=== PATIENT | male | born 1990 | race Caucasian/White ===

== ENCOUNTER 2020-02-29 | Outpatient (REF) | payer BC, SELFPAY ==
[2020-03-01 11:28] LABS: Creatinine Urine 239.18 mg/dL; Microalbum/Creatinine Ratio Ur 7.9 ug/mg cr
== END 2020-02-29 00:01 | disposition home or self-care (01) ==
LOC: HO.WFDLNP
PROVIDERS: Visit Provider Family Medicine
DX: E11.9 Type 2 diabetes mellitus without complications (principal); I10 Essential (primary) hypertension
CPT/HCPCS: 82043

== ENCOUNTER 2021-04-25 14:05 | Outpatient (REF) | payer BC, SELFPAY | END 2021-04-25 14:06 | disposition home or self-care (01) | LOC: HO.LAB 14:05 | PROVIDERS: Visit Provider Family Medicine | DX: Z13.89 Encounter for screening for other disorder (principal) ==

== ENCOUNTER 2021-04-27 11:22 | Outpatient (REF) | payer BC, SELFPAY ==
[2021-04-27 14:30] LABS: Alanine Aminotransferase 23 U/L (0-40); Albumin Level 4.5 g/dL (3.5-5.0); Alkaline Phosphatase 43 U/L (39-117); Anion Gap 10 (12-20); Aspartate Amino Transferase 16 U/L (5-37); Bilirubin Total 1.1 mg/dL (0.0-1.0); Blood Urea Nitrogen 12 mg/dL (9-16); Calcium 9.3 mg/dL (8.4-10.2); Carbon Dioxide 30 mmol/L (22-29); Chloride 103 mmol/L (96-108); Cholesterol 173 mg/dL; Estimated Glomerular Filt Rate > 60; Glucose Fasting 121 mg/dL (60-99); HDL Cholesterol 32 mg/dL; LDL Cholesterol Calculated 128 mg/dl; Potassium 4.3 mmol/L (3.3-5.1); Sodium 139 mmol/L (135-145); Total Protein 7.3 g/dL (6.5-8.0); Triglycerides 65 mg/dL
[2021-04-27 14:51] LABS: TSH reflex Free T4 1.42 uIU/mL (0.32-4.0)
== END 2021-04-27 11:23 | disposition home or self-care (01) ==
LOC: HO.WFDLDS 11:22
PROVIDERS: Visit Provider Family Medicine
DX: Z00.00 Encounter for general adult medical examination without abnormal findings (principal)
CPT/HCPCS: 36415; 80053; 80061; 84443

== ENCOUNTER → 2022-06-21 12:53 | Outpatient (BNVA) | payer BC, SELFPAY | PROVIDERS: PCP Family Medicine; Visit Provider Urology | DX: Z30.2 Encounter for sterilization (principal); F41.8 Other specified anxiety disorders | CPT/HCPCS: 55250 ==

== ENCOUNTER 2022-09-20 09:06 | Outpatient (AMB) | payer BC, SELFPAY ==
--- NOTE | 2022-09-20 09:09 | MHC.OFFVIS ---
Intake Intake Visit Reasons: Three month follow-up semen Intake Note: Patient is present for Follow Up Semen Analysis Urology Med:none Antibiotic Allergy:None Blood Thinner: None Allergies No Known Allergies Allergy (Verified 09/20/22 09:13) HPI HPI Comments History of Present Illness Details Elkin is a pleasant male. He is a patient of Dr. Sinclair. He is seen for the following urologic conditions - anxiety about health [employer]pper with [place] Vasectomy completed Minimal issues with procedure No sperm seen on high-powered examination of sample Vasectomy procedure The patient presents for vasectomy procedure. He is currently He has fathered - three child, with a single partner. The youngest child is - > 1 yr old. His partner is aware and permissive for a vasectomy Current form of control is combination condom And none. 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 Current occupational exposures/hazards: No Cognitive needs: No Hearing needs: No Vision needs: No Review of Systems Const Denies chills and Denies fever(s) Card Reports no additional complaints and Denies syncope Resp Denies cough GI Denies abdominal pain and Denies heartburn Reports as per HPI and Denies change in libido Neuro Denies syncope Psych Denies change in libido Endo Denies change in libido Physical Exam Const General: cooperative, healthy appearing, comfortable and no acute distress Orientation/consciousness: patient oriented x3 HEENT Face and sinus: Yes normal facial exam Mouth: moist mucous membranes Neck Neck: Yes normal visual inspection, Yes full ROM and Yes trachea midline Chest Chest palpation & inspection: normal inspection of the chest Resp Effort & Inspection: normal respiratory effort, able to speak in complete sentences and no respiratory distress GI Inspection: Yes normal to inspection Back/Spine/Pelvis Cervical Spine: normal cervical lordosis Thoracic/Lumbar Spine: thoracic and lumbar spine normal to inspection Skin General skin exam: no rashes or lesions noted Neuro General: patient oriented x3, gait normal, tone normal and moves all extremities Extrem General: Yes normal to inspection and Yes capillary refill normal Assessment & Plan Assessment & Plan (1) Anxiety about health: Code(s): F41.8 - Other specified anxiety disorders Plan P.r.n. Patient Instructions: Imaging studies, laboratory and physical exam results were discussed and reviewed in detail. No major barriers to patient understanding were identified. An opportunity to ask questions regarding the treatment plan was provided. All questions were answered. The patient expressed understanding and agreement with the above treatment plan. The patient is aware they should contact our office by phone for worsening of their current condition or the appearance of new urologic symptoms. Compliance is encouraged with any medications and followup testing that is ordered. It is a privilege to participate in the urologic care of your patient. If you have any questions or concerns regarding treatment for the above conditions, or other urologic issues, please do not hesitate to contact me. The office telephone contact is [phone]. This note is constructed using voice recognition software. While every effort has been made to ensure accuracy paste mixing supervisor errors may have been included. Yours sincerely, Dr Alek Jerry MD, [facility] - Urology Providers of Expert, Compassionate Care for the Genitourinary System Coding Level of Care Code Est Pt Level 3 (28417) Diagnoses Anxiety about health F41.8
== END 2022-09-20 10:17 | disposition home or self-care (01) ==
PROVIDERS: Visit Provider Urology
DX: F41.8 Other specified anxiety disorders (principal)
CPT/HCPCS: 99213

== ENCOUNTER → 2022-09-20 09:06 | Outpatient (BNVA) | payer BC, SELFPAY | PROVIDERS: Visit Provider Urology ==

== ENCOUNTER 2022-09-20 10:50 | Outpatient (AMB) | payer BC, SELFPAY ==
[2022-09-20 10:54] VITALS: BP 108/64; PULSE 78; RESP 12; TEMP 36.6; O2SAT 99; BMI 26.9
--- NOTE | 2022-09-20 10:54 | A.OFFPC_ITS ---
Vital Signs 09/20/22 10:54 Height 5 ft 9 in Weight 182 lb 4 oz BMI 26.9 BP 108/64 Blood Pressure Location Lt brachial Position Sitting Respiration 12 Pulse 78 Pulse Source Pulse Oximeter Temp 98 F Temp Source Temporal Artery Scan Pulse Oximetry (%) 99 Oxygen Delivery Method Room Air Intake Visit Reasons: CPE with f/u labs and health maintenance Intake Note: Patient states that his blood sugar has been consistently over 160 and hasn't changed nothing in his diet. Patient states that he would like to try the Itz Sensor due to him feelimg like it would be easier for his daily life. Quality Compliance Consultant Required: No Accompanied by: Self / Same As Patient Allergies No Known Allergies Allergy (Verified 09/20/22 11:16) Medication List - Last Reconciled 09/20/22 by Marylu Negron CNP blood sugar diagnostic (OneTouch Ultra Test strips) Test Once Daily lancets (FreeStyle Lancets) As directed metformin 850 mg PO BID Tobacco use date assessed: 09/20/22 Dental Screening Dental Screen Date: 09/20/22 Did you have a dental visit in the last 12 months?: Yes Did you have a dental problem in the last 6 months where you did not have access to dental care?: No Was dental information given to patient?: Patient has dentist HPI HPI Comments History of Present Illness Details 32-year-old male presents for complete physical exam, labs reviewed, and diabetes follow-up. He is on metformin which he notes he takes as prescribed. He states that he checks his blood glucose 3-4 times daily with readings between 160-190 in the past month and half. He admits to maintaining a healthy diet and exercising routinely No acute symptoms today. He has not gotten his fasting blood work done. He requests a CMG device. He states he will pay out of pocket if the health plan does not cover the device. He states he usually follow up with his PCP every 6 months. 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 Kedar Thomas, Rosie Lei, Jovany Torres and colleagues, with an educational ana laura from [employer]. Review of Systems Const Details: Denies chills, Denies fatigue, Denies fever(s), Denies headache(s) and Denies weakness HEENT Denies change in vision, Denies dizziness, Denies headache(s), Denies hearing loss, Denies nasal congestion, Denies sinus pain, Denies sinus pressure and Denies sore throat Card Denies chest pain, Denies lightheadedness, Denies dyspnea and Denies other (palpitations) Resp Denies cough, Denies dyspnea and Denies wheezing GI Denies abdominal pain, Denies melena, Denies hematochezia, Denies change in bowel habits, Denies dyspepsia and Denies nausea Denies hematuria and Denies dysuria Musc Denies abnormal gait, Denies myalgias, Denies arthralgias, Denies numbness and Denies tingling Skin/Breast Denies rash, Denies unusual bruising and Denies wounds Neuro Denies abnormal gait, Denies dizziness, Denies headache(s), Denies memory loss, Denies numbness, Denies Sensory deficit (Neuro), Denies tingling and Denies weakness Psych Denies anxiety, Denies depression and Denies memory loss Endo Denies cold intolerance, Denies fatigue, Denies heat intolerance, Denies polydipsia and Denies polyuria Moises/Lymph Denies easy bleeding and Denies easy bruising Aller/Immun Denies wheezing Physical exam (Primary Care) Vital Signs: Last Vital Signs Temp 98 F 09/20/22 10:54 Pulse 78 09/20/22 10:54 Resp 12 09/20/22 10:54 BP 108/64 09/20/22 10:54 Pulse Ox 99 09/20/22 10:54 Oxygen Delivery Method Room Air 09/20/22 10:54 BMI result Body Mass Index 26.9 Tobacco/Smoking Status: Tobacco use Status Tobacco use date assessed 09/20/22 09/20/22 11:08 Patient Tobacco Use Status Former Tobacco user 09/20/22 10:56 Tobacco use type Cigarette 09/20/22 10:56 e-Cigarette/Vaping Use Never Used 09/20/22 10:56 Thrive Assessment: Date of Thrive Assessment Date Thrive assessed 03/28/22 09/20/22 10:56 Const Other: General: no acute distress, well developed, alert and awake Nutritional Appearance: well nourished Orientation/consciousness: patient oriented x3 HENMT Head: Yes normocephalic and Yes atraumatic Ears: hearing grossly normal bilaterally and TM's normal bilaterally General nose exam: Normal external nose present and Normal nares present Mouth: Normal oral and palatal mucosa present and moist mucous membranes Teeth and gingiva: dentition normal Throat: Yes oropharynx normal Eyes Pupils: Equal, round and reactive pupils present and Pupil accommodation reflex normal EOM: EOMs intact bilaterally Neck Neck: Yes normal visual inspection, Yes no lymphadenopathy and Yes trachea midline Thyroid: Thyroid normal Carotids: no bruits Lymphatic: no lymphadenopathy noted Chest Chest palpation & inspection: normal inspection of the chest Resp Effort & Inspection: normal respiratory effort Auscultation: clear to auscultation bilaterally Cardio Rate: regular rate Rhythm: regular rhythm Heart sounds: S1 normal heart sound present, S2 normal heart sound present, no gallops, no murmurs and no rubs Bruits: no abdominal aortic bruits and no carotid bruits GI Palpation (GI): No Abdominal aortic bruit present, Soft to palpation, nontender, No hepatosplenomegaly present and No Rebound tenderness present Auscultation: normal bowel sounds General: Yes no CVA tenderness Back/Spine/Pelvis Back: no CVA tenderness Cervical Spine: cervical ROM normal and No Cervical spine tenderness Thoracic/Lumbar Spine: thoraco-lumbar ROM normal, No pain with thoraco-lumbar ROM, No thoracic spinal tenderness and No lumbar spinal tenderness Skin General: warm and dry. Normal skin color. Normal skin turgor Lesions: no lesions Rashes: no rashes Trauma: no lacerations or abrasions Wounds: no wounds Nails: normal Neuro General: patient oriented x3, gait normal and CN's II-XI intact bilaterally Cranial nerves: Yes Equal, round and reactive pupils present Cognition (Neuro): normal cognition Gait exam (Neuro): Normal gait present Motor exam (neuro): 5/5 motor strength present throughout Sensory Exam: No Sensory deficit (Neuro) Deep tendon reflexes (DTR's): Right patellar reflex intensity grade: 2+ and Left patellar reflex intensity grade: 2+ Extrem General: Yes normal to inspection, No edema and No calf tenderness Psych Appearance: grossly normal Affect: normal affect Attitude: cooperative Thought process: Normal thought process present Results AMB Hemoglobin A1c AMB Hemoglobin A1c 6.4 % Last Edit by Luzma Rice MA on 09/20/22 11:47 Results Reviewed Results Reviewed: Laboratory Last Values Hgb A1c (Clinic) 6.4 % (4.0-6.0) H 09/20/22 11:46 Assessment and Plan Assessment & Plan (1) Adult general medical exam: Code(s): Z00.00 - Encounter for general adult medical examination without abnormal findings Plan: Normal physical exam of a 32-year-old male No significant physical restrictions or limitations noted (2) Diabetes type 2, controlled: Code(s): E11.9 - Type 2 diabetes mellitus without complications Plan: His A1c today is 6.4%, within goal of less than 7.0% Continue to take metformin as prescribed ADA diet and routine exercise encouraged Itz 2 ordered He met with the nurse navigator who instructed him on Itz 2 Advised to get pending fasting blood work done before next visit Follow-up with PCP in 6 months Return sooner with symptoms or concerns Verbalized understanding and agreed with treatment plan. Orders: Orders AMB Hemoglobin A1c Today Z13.9 - Encounter for screening, unspecified Medications: New flash glucose sensor (FreeStyle Itz 2 Sensor kit) As directed 1 ea 3RF Coding Level of Care Code Est Pt Prev Care 18-39y(46991) Diagnoses Adult general medical exam Z00.00 Diabetes type 2, controlled E11.9
== END 2022-09-20 12:05 | disposition home or self-care (01) ==
PROVIDERS: PCP Family Medicine; Visit Provider Nurse Practitioner Family
DX: Z00.00 Encounter for general adult medical examination without abnormal findings (principal); E11.9 Type 2 diabetes mellitus without complications
CPT/HCPCS: 83036; 99395

== ENCOUNTER 2023-05-26 00:12 | Emergency (ER) | payer BC, SELFPAY ==
--- NOTE | ~2023-05-26 | XR_ITS ---
EXAMINATION: XR RIBS, RIGHT CLINICAL INFORMATION: Pain COMPARISON: 08/16/2016 TECHNIQUE: 3 views of the right ribs were obtained. FINDINGS: No displaced rib fracture is seen. The lungs are clear with no focal consolidation. No evidence of pneumothorax, pulmonary edema, or pleural effusions. The cardiomediastinal contour is unremarkable. XR/XR ribs RT min 3V w CXR1V IMPRESSION: No rib fracture identified.
[2023-05-26 00:16] VITALS: BP 137/90; PULSE 73; RESP 16; TEMP 36.6; O2SAT 97; BMI 25.8
--- NOTE | 2023-05-26 00:27 | ED.GENADULT ---
HPI - General Adult General Chief complaint: General Medical Stated complaint: diff breathing Time Seen by Provider: 05/26/23 00:27 Source: patient Mode of arrival: ambulatory Limitations: no limitations History of Present Illness HPI narrative: Patient is a 32 year old assigned male at with a history of DM and anxiety presenting to the emergency department today with right sided pectoral pain. Patient states that 5 days ago he was playing hockey and took a stick in a spear type strike to his right chest. Patient states that later that night he began to develop pain and has had pain ever since. Patient states that he has pain with palpation and deep breathing. Patient denies any head strike, loss of consciousness, dizziness, lightheadedness, abdominal pain, nausea, vomiting, fever, chills, blurry vision, double vision, loss of vision, chest pain, difficulty breathing, shortness of breath, back pain, night sweats, pain with urination, increased urinary frequency, increased urinary urgency, blood in his urine or stool, syncope or a near syncopal episode, recent trauma or falls, bowel incontinence, bladder incontinence, bowel retention, bladder retention, or any other complaints at this time. Onset (ago): day(s) (5) Location: chest and right Severity: mild Severity scale (1-10): 3 Quality: aching and dull Pain Consistency: constant Relieving factors: none Exacerbating factors: other (palpation of the right chest and deep breathing) Treatments prior to arrival: none Related Data Previous Rx's Medication Instructions Recorded lancets 28 gauge (FreeStyle #100 ea 09/07/21 Lancets) metformin 850 mg tablet 850 mg PO BID #180 tabs 05/14/22 flash glucose sensor (FreeStyle #1 ea 09/20/22 Itz 2 Sensor kit) blood sugar diagnostic (LTG Exam Prep PlatformTouch #100 ea 10/24/22 Ultra Test strips) cyclobenzaprine 5 mg tablet 5 mg PO TID PRN muscle spasm 7 05/26/23 days #21 tabs Allergies Allergy/AdvReac Type Severity Reaction Status Date / Time No Known Allergies Allergy Verified 09/20/22 11:16 Review of Systems Constitutional: Constitutional: Reports no additional constitutional complaints, Denies chills, Denies fever(s) and Denies night sweats Eyes: Eyes: Reports no additional eye complaints, Denies blurry vision, Denies change in vision, Denies diplopia, Denies eye discharge, Denies loss of vision and Denies eye pain ENT: Denies dizziness Cardiovascular: Cardiovascular: Reports no additional cardiovascular complaints, Reports chest pain, Denies lightheadedness, Denies Loss of Consciousness and Denies dyspnea Respiratory: Respiratory: Reports no additional respiratory complaints and Denies dyspnea Gastrointestinal: Gastrointestinal: Reports no additional gastrointestinal complaints, Denies abdominal pain, Denies melena, Denies hematochezia, Denies change in bowel habits and Denies change in stool character Genitourinary: Genitourinary: Reports no additional male genitourinary complaints, Denies hematuria, Denies oliguria, Denies difficulty urinating, Denies dysuria, Denies urinary frequency, Denies urinary hesitancy, Denies urinary incontinence and Denies urinary urgency Musculoskeletal: Musculoskeletal: Reports no additional musculoskeletal complaints, Denies numbness and Denies tingling Neurologic: Denies dizziness, Denies loss of vision, Denies numbness and Denies tingling Psychiatric: Psychiatric: Reports no additional psychiatric complaints Endocrine: Endocrine: Reports no additional endocrine complaints Hematologic/Lymphatic: Hematologic/Lymphatic: Reports no additional hematologic/lymphatic complaints Allergic/Immunologic: Allergic/Immunologic: Reports no additional allergic/immunologic complaints PMF Past Medical History Attestation statement: The following information was validated with the patient. Source: old records reviewed and nursing notes reviewed Medical History No pertinent past medical history Surgical History History of vasectomy Family History Family History Other Substance abuse Social History Social History Housing: House Alcohol intake: never Patient Tobacco Use Status: Former Tobacco user Tobacco use type: Cigarette Smoked in Last 30 Days: No e-Cigarette/Vaping Use: Never Used Use of substances other than those prescribed or required for medical reasons: No Advance Directives: No Advance Directives Information Provided: No service: No Current occupational status: employed 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 Current occupational exposures/hazards: No Cognitive needs: No Hearing needs: No Vision needs: No Physical Exam ED Vital Signs: Vital Signs - 24 hr 05/26/23 00:16 Temperature 97.8 F Pulse Rate 73 Respiratory Rate 16 Blood Pressure 137/90 H Pulse Oximetry 97 Oxygen Delivery Method Room Air BMI result Body Mass Index 25.8 Const General: cooperative, no acute distress, alert and awake Nutritional Appearance: well nourished Orientation/consciousness: patient oriented x3 Limitations: no limitations HENMT Head: Yes normal to inspection and Yes atraumatic Ears: hearing grossly normal bilaterally and external ears normal General nose exam: Normal external nose present, no nasal discharge noted and no epistaxis Face and sinus: Yes normal facial exam, No abrasion and No laceration Mouth: Normal oral and palatal mucosa present, no drooling and no muffled voice Eyes General: appearance normal, both eyes and all related structures Periorbital: periorbital findings normal Eyelids: Yes eyelids normal Conjunctivae: conjunctivae normal Pupils: Equal, round and reactive pupils present EOM: EOMs intact bilaterally Neck Neck: Yes normal visual inspection, Yes full ROM and Yes no lymphadenopathy Chest Other: pain with palpation to the right leyva Chest palpation & inspection: normal inspection of the chest Resp Effort & Inspection: normal respiratory effort and able to speak in complete sentences GI Inspection: Yes normal to inspection Neuro General: patient oriented x3 and moves all extremities Cranial nerves: Yes Equal, round and reactive pupils present Cognition (Neuro): normal cognition Motor exam (neuro): 5/5 motor strength present throughout Sensory Exam: Normal double simultaneous stimulation for sensation Coordination: [id number] test normal Extrem General: Yes normal to inspection, Yes full ROM and Yes capillary refill normal Psych Appearance: grossly normal Mental Status: mental status grossly normal Affect: normal affect Attitude: cooperative Thought process: Normal thought process present Thought content: Normal thought content present Insight: Good insight present (Psych) Medical Decision Making Medical Decision Making MDM Narrative: Patient is a 32 year old assigned male at with a history of DM and anxiety presenting to the emergency department today with right pectoral pain. Patient's physical exam was as noted in the physical exam portion of this note. Patient's right rib and chest x-ray showed no acute process. I explained my physical exam findings as well as all test results to the patient. I answered all questions asked by the patient. I stressed the importance of the patient taking his medication as prescribed. I stressed the importance of the patient following up with his primary care provider. I stressed the importance of the patient returning to the emergency department immediately if his symptoms were to worsen or if he were to develop any dizziness, shortness of breath, difficulty breathing, chest pain, blurry vision, loss of vision, nausea, vomiting, abdominal pain, fever, chills, back pain, or any other complaints. Patient verbalized agreement and understanding with this treatment plan and discharge. Differential Diagnosis Differential Diagnoses: The differential diagnosis associated with the presentation includes Right pectoral pain Right chest pain Right rib pain Admission/Observation Consideration of admission/observation: Escalation of care including admission/observation considered Patient would have been admitted to the hospital had his work up had any findings where hospital admission was appropriate and his clinical presentation warranted hospital admission. Independent Interpretation I performed an independent interpretation of an: Plain X-Ray Interpretation: My interpretation is in agreement with the radiologist's impression of this imaging study. EXAMINATION: XR RIBS, RIGHT CLINICAL INFORMATION: Pain COMPARISON: 08/16/2016 TECHNIQUE: 3 views of the right ribs were obtained. FINDINGS: No displaced rib fracture is seen. The lungs are clear with no focal consolidation. No evidence of pneumothorax, pulmonary edema, or pleural effusions. The cardiomediastinal contour is unremarkable. XR/XR ribs RT min 3V w CXR1V IMPRESSION: No rib fracture identified. Dictated By: Ramón Arora MD Signed By: Electronically signed by Ramón Arora MD 05/26/23 0246 Radiology Impression Discussion of test interpretation with radiology: I have reviewed the radiologist's reading. Prescription Management I considered prescription management with: Pain Medication (patient prescribed pain medication) Chronic Conditions Patient?s care impacted by: Diabetes Discharge Plan Discharge Clinical Impression: Pectoralis muscle strain, Pain in rib Patient Disposition: Home, Self-Care Instructions: Muscle Strain (DC), Chest Wall Pain (ED) Additional Instructions: Follow up with your primary care provider. Return to the emergency department immediately if your symptoms worsen or if you develop any dizziness, shortness of breath, difficulty breathing, chest pain, blurry vision, loss of vision, nausea, vomiting, abdominal pain, fever, chills, back pain, or any other complaints. TECHNIQUE: 3 views of the right ribs were obtained. FINDINGS: No displaced rib fracture is seen. The lungs are clear with no focal consolidation. No evidence of pneumothorax, pulmonary edema, or pleural effusions. The cardiomediastinal contour is unremarkable. XR/XR ribs RT min 3V w CXR1V IMPRESSION: No rib fracture identified. Prescriptions: New cyclobenzaprine 5 mg tablet 5 mg PO TID PRN (Reason: muscle spasm) 7 Days Qty: 21 0RF No Action (DME) lancets [FreeStyle Lancets] 28 gauge misc See Rx Instructions .MEDSUPPLY Qty: 100 4RF Rx Instructions: As directed metformin 850 mg tablet 850 mg PO BID Qty: 180 4RF (DME) OneTouch Ultra Test Strip See Rx Instructions .Route Qty: 100 0RF Rx Instructions: Test Once Daily (DME) FreeStyle Itz 2 Sensor Kit See Rx Instructions .Route Qty: 1 3RF Rx Instructions: As directed [place] [facility] [place] (Call to establish and follow up with a primary care provider. If you already have a primary care provider, please follow up with them.) [facility] [place]Provider Group] (Call to establish and follow up with a primary care provider. If you already have a primary care provider, please follow up with them.) [facility] [place] Group] (Call to establish and follow up with a primary care provider. If you already have a primary care provider, please follow up with them.) Stand Alone Forms: Work/School Release Interventions: ED Discharge Assessment Last Done: 05/26/23 03:57 Discharge Date/Time: 05/26/23 03:57 Print Language: Singaporean
[2023-05-26 01:59] VITALS: BP 136/92; PULSE 63; RESP 14; O2SAT 96
[2023-05-26 03:57] VITALS: BP 128/81; PULSE 75; RESP 12; TEMP 36.4; O2SAT 99
== END 2023-05-26 03:57 | disposition home or self-care (01) ==
PROVIDERS: Emergency Provider Emergency Medicine Emergency Medical Services
DX: S29.011A Strain of muscle and tendon of front wall of thorax, initial encounter (principal); R07.81 Pleurodynia; E11.9 Type 2 diabetes mellitus without complications; W22.8XXA Striking against or struck by other objects, initial encounter; Y93.69 Activity, other involving other sports and athletics played as a team or group; Y92.9 Unspecified place or not applicable; Y99.9 Unspecified external cause status
CPT/HCPCS: 71101; 99283; 99284

== ENCOUNTER 2023-05-30 08:51 | Outpatient (AMB) | payer BC, SELFPAY ==
--- NOTE | 2023-05-30 09:20 | A.OFFPC_ITS ---
Vital Signs 3 05/30/23 09:21 Height 5 ft 9 in Weight 170 lb BMI 25.1 BP 122/64 Blood Pressure Location Rt brachial Position Sitting Pulse 75 Pulse Source Auscultation Intake Visit Reasons: [facility], Painful breathing, pulled pectoral muscle Intake Note: Patient reports he is here for a hospital follow up visit. He reports he feels better than when he went to the ER but still not great. Patient reports pain on the R ribs/chest with deep breaths, coughing, sneezing, etc. Online Merchant Required: No Accompanied by: self Allergies No Known Allergies Allergy (Verified 05/30/23 09:42) Medication List - Last Reconciled 05/30/23 by CAROLINA Foss blood sugar diagnostic (GaopengTouch Ultra Test strips) Test Once Daily flash glucose sensor (PostachioStyle Itz 2 Sensor kit) As directed lancets (FreeStyle Lancets) As directed metformin 850 mg PO BID Tobacco use date assessed: 05/30/23 Dental Screening Dental Screen Date: 09/20/22 HPI HPI Comments 2 History of Present Illness0 Details 32-year-old now with diabetes and anxiet y presented to [facility]'s Emergency room on 05/26/2023 with right pectoral muscle pain worse with inspiration. Started while playing hockey. Chest x-ray and right rib x-ray within normal limits. Discharged home with no services. Prescriptions: New cyclobenzaprine 5 mg tablet 5 mg PO TID PRN (Reason: muscle spasm) 7 Days Qty: 21 0RF Presents today feeling a little better. Had episode of lifting daughter and this exacerbated the pain. Not using muscle relaxer. Worried about what it is. He wonders if its torn. Coughing and sneezing increases pain. No trouble breathing. Does have pain w/ deep breath. This has never happened before. When at rest, feels a little bit of pain. Its the above movement that increases his pain. To help, using NSAID with + relief and also applying ice. Denies fever, chills, hemoptysis. 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 Kedar Thomas, Rosie Lei, Jovany Torres and colleagues, with an educational ana laura from [employer]. Review of Systems Const All systems reviewed & are unremarkable except as noted in HPI and below Physical exam (Primary Care) BMI result Body Mass Index 25.1 Tobacco/Smoking Status: Tobacco use Status Tobacco use date assessed 05/30/23 05/30/23 09:26 Patient Tobacco Use Status Former Tobacco user 05/30/23 09:25 Tobacco use type Cigarette 05/30/23 09:25 e-Cigarette/Vaping Use Never Used 05/30/23 09:25 Thrive Assessment: Date of Thrive Assessment Date Thrive assessed 03/28/22 05/30/23 09:22 Advance Care Planning discussion: Completed/Scanned Date of discussion: 05/30/23 Who was present: self Forms completed: Health Care Proxy (blank form given) Time spent: 1-15 minutes, not on file Const Other: awake alert NAD RRR LS CTAB Chest Chest/axillae images: 2 1. no chest or breast deformities; reproducible pain w/ palp along anterior rib Assessment and Plan Assessment & Plan (1) Hospital discharge follow-up: Code(s): Z09 - Encounter for follow-up examination after completed treatment for conditions other than malignant neoplasm (2) Costochondral chest pain: Comment: NSAID daily x 2 weeks, take w/ food. avoid OTC NSAIDS while taking. Use APAP prn. Warm moist comps, gentle stretching, avoid activities that bother, out of work x 2 weeks. RTO as needed Code(s): R07.89 - Other chest pain Plan: This note is constructed using voice recognition software. While every effort has been made to ensure accuracy in manager speech, still errors may have been included Sometimes, these errors may affect the content or meaning of the given sentence . Total time spent caring for the patient today was 40 minutes. This includes time spent before the visit reviewing the chart, time spent during the visit, and time spent after the visit on documentation Medications: New 2 meloxicam 7.5 mg PO DAILY 14 tabs 0RF Patient Instructions: RTO 4-6 weeks to est care, please get records prior Thanks Coding Level of Care Code New Pt Level 4 (24896) Diagnoses Hospital discharge follow-up Z09 Costochondral chest pain R07.89 Additional Codes Vital Signs *Quality* - Advance Care Planning discussion: Completed/Scanned ([id number]) Vital Signs *Quality* - Time spent: 1-15 minutes, not on file ([id number])
[2023-05-30 09:21] VITALS: BP 122/64; PULSE 75; BMI 25.1
== END 2023-05-30 10:00 | disposition home or self-care (01) ==
PROVIDERS: Visit Provider Nurse Practitioner Family
DX: Z09 Encounter for follow-up examination after completed treatment for conditions other than malignant neoplasm (principal); R07.89 Other chest pain; Z00.00 Encounter for general adult medical examination without abnormal findings
CPT/HCPCS: 1123F; 1124F; 99204

== ENCOUNTER 2023-07-24 10:58 | Outpatient (AMB) | payer BC, SELFPAY ==
--- NOTE | 2023-07-24 10:58 | MHC.PC.OV ---
Vital Signs 07/24/23 10:59 Height 5 ft 9 in Weight 178 lb 8 oz BMI 26.4 BP 122/80 Blood Pressure Location Rt brachial Position Sitting Respiration 14 Pulse 82 Pulse Source Pulse Oximeter Temp 97.4 F Temp Source Temporal Artery Scan Pulse Oximetry (%) 99 Oxygen Delivery Method Room Air Intake Visit Reasons: Blood Sugar Shoe Planner Required: No Accompanied by: Self / Same As Patient Allergies No Known Allergies Allergy (Verified 07/24/23 11:06) Medication List - Last Reconciled 07/24/23 by CAROLINA Foss blood sugar diagnostic (OneTouch Ultra Test strips) Test Once Daily flash glucose sensor (FreeStyle Itz 2 Sensor kit) As directed glipizide 2.5 mg PO DAILY lancets (FreeStyle Lancets) As directed metformin 850 mg PO BID Tobacco use date assessed: 05/30/23 Dental Screening Dental Screen Date: 07/24/23 Did you have a dental visit in the last 12 months?: No Did you have a dental problem in the last 6 months where you did not have access to dental care?: No Was dental information given to patient?: Patient has dentist HPI HPI Comments History of Present Illness Details 32-year-old male with diabetes 2, generalized anxiety disorder s/p vasectomy Health maintenance HgA1c 12% in office today [facility] eye care 2022 negative retinopathy Here today with complaints of hyperglycemia. 3 months ago stopped checking blood sugars figured healthy life style and diet; of late started drinking 3 monster energy drinks per day (sugar free) Just started CGM about 4-5 days ago Freestyle Itz 2 This is not Has collaborated Glucose via CGM at time of visit 376mg/dl Time in target 0% average glucose 376mg/dl has noted readings > 300 mg/dl went to urgent over the weekend A1c was > 9% Taking metformin 850mg po BID started taking Glipizide ER 5mg daily for the last three days , reports he was on this in the past this caused severe hypoglycemia. 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 Not currently active w/ Endo at this time. Is not currently on insulin and has never been in the past. 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 Kedar Thomas, Rosie Lei, Jovany Torres and colleagues, with an educational ana laura from [employer]. Review of Systems Const All systems reviewed & are unremarkable except as noted in HPI and below Physical exam (Primary Care) Vital Signs: Last Vital Signs Temp 97.4 F 07/24/23 10:59 Pulse 82 07/24/23 10:59 Resp 14 07/24/23 10:59 BP 122/80 07/24/23 10:59 Pulse Ox 99 07/24/23 10:59 Oxygen Delivery Method Room Air 07/24/23 10:59 BMI result Body Mass Index 26.4 Tobacco/Smoking Status: Tobacco use Status Tobacco use date assessed 05/30/23 07/24/23 10:59 Patient Tobacco Use Status Former Tobacco user 07/24/23 10:59 Tobacco use type Cigarette 07/24/23 10:59 e-Cigarette/Vaping Use Never Used 07/24/23 10:59 Thrive Assessment: Date of Thrive Assessment Date Thrive assessed 03/28/22 07/24/23 10:59 Results AMB Hemoglobin A1c AMB Hemoglobin A1c 12.0 % Last Edit by Kelly Mitchell CMA on 07/24/23 11:12 Results Reviewed Results Reviewed: Laboratory Last Values Hgb A1c (Clinic) 12.0 % (4.0-6.0) H 07/24/23 11:10 Assessment and Plan Assessment & Plan (1) Diabetes mellitus type 2 with complications: Code(s): E11.8 - Type 2 diabetes mellitus with unspecified complications (2) Hyperglycemia due to type 2 diabetes mellitus: Comment: Hemoglobin A1c 12% today in the office via poc and it was 9% 3 days ago at urgent care. Given the large range I will check a serum A1c today. Want to avoid starting him on insulin if at all possible given his job. The plan will be to increase his metformin from 850 mg p.o. b.i.d. to 1000 mg p.o. b.i.d.. Discontinue the glipizide as this caused significant hypoglycemia in the past. Start Jardiance 10 mg p.o. daily. Continue CGM. Code(s): E11.65 - Type 2 diabetes mellitus with hyperglycemia Qualifiers: Diabetes mellitus long wall shear operator insulin use: without long wall shear operator use Qualified Code(s): E11.65 - Type 2 diabetes mellitus with hyperglycemia Plan This note is constructed using voice recognition software. While every effort has been made to ensure accuracy in stenotype machine operator, still errors may have been included Sometimes, these errors may affect the content or meaning of the given sentence . Total time spent caring for the patient today was 45 minutes. This includes time spent before the visit reviewing the chart, time spent during the visit, and time spent after the visit on documentation Orders: Orders AMB Hemoglobin A1c Today Z13.9 - Encounter for screening, unspecified Comprehensive Met. Panel Today E11.8 - Type 2 diabetes mellitus with unspecified complications Hemoglobin A1c Today E11.8 - Type 2 diabetes mellitus with unspecified complications UA and rflx microscopic Today E11.8 - Type 2 diabetes mellitus with unspecified complications Vitamin B12 and Folate Today E11.8 - Type 2 diabetes mellitus with unspecified complications Medications: New metformin ER 500 mg PO BID 180 tabs 0RF empagliflozin (Jardiance) 10 mg PO DAILY 90 tabs 0RF Discontinued metformin Discontinued Reason: Doctor's Order 850 mg PO BID 180 tabs 4RF Patient Instructions: Check labs today. RTO IN 4 WEEKS, SOONER NEEDED Coding Level of Care Code Est Pt Level 5 (14277) Diagnoses Diabetes mellitus type 2 with complications E11.8 Type 2 diabetes mellitus with hyperglycemia, without long-term current use of insulin E11.65 Diabetes mellitus long wall shear operator insulin use: without skilled nursing use
[2023-07-24 10:59] VITALS: BP 122/80; PULSE 82; RESP 14; TEMP 36.3; O2SAT 99; BMI 26.4
== END 2023-07-24 11:40 | disposition home or self-care (01) ==
PROVIDERS: PCP Nurse Practitioner Family; Visit Provider Nurse Practitioner Family
DX: E11.8 Type 2 diabetes mellitus with unspecified complications (principal); E11.65 Type 2 diabetes mellitus with hyperglycemia
CPT/HCPCS: 83036; 99215

== ENCOUNTER 2023-07-24 11:29 | Outpatient (REF) | payer BC, SELFPAY ==
[2023-07-24 14:40] LABS: Appearance Urine Clear; Color Urine Yellow; Glucose Urine UA >=1000 mg/dL (Negative); Leukocyte Esterase Urine Negative (Negative); Nitrite Urine Negative (Negative); Specific Gravity - Urine >= 1.030 (1.005-1.025); UMIC TRIGGER UA YES; Urine Blood Negative (Negative); Urine Ketones Trace mg/dL (Negative); Urine Protein Negative (Neg-Trace)
[2023-07-24 14:56] LABS: Bacteria Urine None Seen (None Seen); Hyaline Casts Urine 0-2 /LPF (0-2); RBC Urine 0-2 /HPF (0-2); Squamous Epithelial Cell Urine 0-2 /HPF (0-2); WBC Urine 0-5 /HPF (0-5)
[2023-07-24 15:30] LABS: Estimated Average Glucose 260 mg/dL; Hemoglobin A1c % 10.7 % (<6.0)
[2023-07-24 16:04] LABS: Alanine Aminotransferase 36 U/L (0-40); Albumin Level 4.4 g/dL (3.5-5.0); Alkaline Phosphatase 48 U/L (39-117); Anion Gap 13 (12-20); Aspartate Amino Transferase 19 U/L (5-37); Bilirubin Total 0.5 mg/dL (0.0-1.0); Blood Urea Nitrogen 23 mg/dL (9-16); Calcium 9.2 mg/dL (8.4-10.2); Carbon Dioxide 26 mmol/L (22-29); Chloride 102 mmol/L (96-108); Estimated Glomerular Filt Rate > 60; Glucose Random 361 mg/dL (60-115); Potassium 4.5 mmol/L (3.3-5.1); Sodium 136 mmol/L (135-145); Total Protein 7.2 g/dL (6.5-8.0)
[2023-07-24 16:08] LABS: Folate 9.7 ng/mL (> or = 4.0); Vitamin B12 879 pg/mL (200-900)
== END 2023-07-24 11:30 | disposition home or self-care (01) ==
LOC: HO.WFDLDS 11:29
PROVIDERS: Visit Provider Nurse Practitioner Family
DX: E11.8 Type 2 diabetes mellitus with unspecified complications (principal)
CPT/HCPCS: 36415; 80053; 81001; 82607; 82746; 83036

== ENCOUNTER 2023-09-06 12:00 | Outpatient (AMB) | payer BC, SELFPAY ==
--- NOTE | 2023-09-06 12:06 | A.OFFPC_ITS ---
Vital Signs 09/06/23 12:08 Height 5 ft 9 in Weight 179 lb BMI 26.4 BP 112/72 Blood Pressure Location Rt brachial Position Sitting Pulse 74 Pulse Source Pulse Oximeter Pulse Oximetry (%) 97 Oxygen Delivery Method Room Air Intake Visit Reasons: 4 WEEKS FU 30 MIN FU HYPERGLYCEMIA MED CHANGES Intake Note: Medication follow up Baggage Inspector Required: No Allergies No Known Allergies Allergy (Verified 09/06/23 12:07) Medication List - Last Reconciled 09/06/23 [facility] blood sugar diagnostic (OneTouch Ultra Test strips) Test Once Daily empagliflozin (Jardiance) 10 mg PO DAILY flash glucose sensor (FreeStyle Itz 2 Sensor kit) As directed lancets (FreeStyle Lancets) As directed metformin ER 500 mg PO BID Tobacco use date assessed: 05/30/23 Dental Screening Dental Screen Date: 07/24/23 HPI HPI Comments History of Present Illness Details 33-year-old male here today to follow up on type 2 diabetes with hyperglycemia. At the last office visit his metformin was increased to a 1000 mg twice per day and he was started on Jardiance. He has been taking the prescribed therapy. He was wearing a CGM. He reports that the readings were greatly improved. Did have a few readings less than 100 and did have a highest bike around 400 mg/dL after eating pizza. Has not had spikes as high since. Unfortunately he has been removing the CGM every 10 days rather than every 14 days and has run out of refills. He has not testing his blood sugar daily or routinely since he is run out of the CGM. He has not been able to manually checked his blood sugar as he isn't have any glucose test strips. Be that as it may he feels well. He has not have any GI symptoms nor is he having any symptoms. Exam Awake alert oriented Mucous membranes moist Regular rate and rhythm Lung sounds clear to auscultation bilat Abdomen soft nontender Plan New prescription for the freestyle Itz 3 sent to the pharmacy with 1 year's worth of refills. One touch glucose test strips sent in so that he can manually check his blood sugars while waiting for the CGM. Advised the CGM should be worn for 14 days and not 10 days. Advised to call if he has any issues filling this prescription. At this time continue taking the metformin a 1000 mg twice per day and Jardiance 10 mg daily. He will be due for repeat labs in about 3 months. These labs are nonfasting an avid placed today. Get them done 1 week before your next appointment. Return to the office sooner if needed. This note is constructed using voice recognition software. While every effort has been made to ensure accuracy in manual control auger press operator, still errors may have been included Sometimes, these errors may affect the content or meaning of the given sentence . Total time spent caring for the patient today was 30 minutes. This includes time spent before the visit reviewing the chart, time spent during the visit, and time spent after the visit on documentation [facility] Medical History (Updated 09/06/23 @ 13:16 by Kimberly Germain [facility]) Costochondral chest pain No pertinent past medical history Surgical History History of vasectomy Family History Other Substance abuse Social History Household Members: Spouse and Children Household Members Other:: children x3 Housing: House 75 years or older and lives alone: No Alcohol intake: never Patient Tobacco Use Status: Former Tobacco user Tobacco use type: Cigarette e-Cigarette/Vaping Use: Never Used service: No Current occupational status: employed 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 eKdar Thomas, Rosie Lei, Jovany Torres and colleagues, with an educational ana laura from [employer]. Physical exam (Primary Care) Vital Signs: Last Vital Signs Pulse 74 09/06/23 12:08 BP 112/72 09/06/23 12:08 Pulse Ox 97 09/06/23 12:08 Oxygen Delivery Method Room Air 09/06/23 12:08 BMI result Body Mass Index 26.4 Tobacco/Smoking Status: Tobacco use Status Tobacco use date assessed 05/30/23 09/06/23 12:07 Patient Tobacco Use Status Former Tobacco user 09/06/23 12:07 Tobacco use type Cigarette 09/06/23 12:07 e-Cigarette/Vaping Use Never Used 09/06/23 12:07 Thrive Assessment: Date of Thrive Assessment Date Thrive assessed 03/28/22 09/06/23 12:07 Assessment and Plan Assessment & Plan (1) Hyperglycemia due to type 2 diabetes mellitus: Code(s): E11.65 - Type 2 diabetes mellitus with hyperglycemia Qualifiers: Diabetes mellitus terminal supervisor insulin use: without fci use Qualified Code(s): E11.65 - Type 2 diabetes mellitus with hyperglycemia Orders: Orders Comprehensive Met. Panel 11/26/23 E11.65 - Type 2 diabetes mellitus with hyperglycemia Hemoglobin A1c 11/26/23 E11.65 - Type 2 diabetes mellitus with hyperglycemia Medications: New blood-glucose sensor (FreeStyle Itz 3 Sensor device) As directed 2 ea 11RF E11.8 - Type 2 diabetes mellitus with unspecified complications Changed From metformin ER 500 mg PO BID 180 tabs 0RF To metformin ER 1,000 mg (2 x 500 mg) PO BID 360 tabs 1RF 90 days Refilled empagliflozin (Jardiance) 10 mg PO DAILY 90 tabs 0RF blood sugar diagnostic (OneTouch Ultra Test strips) Test Once Daily 100 ea 8RF E11.9 - Type 2 diabetes mellitus without complications Discontinued flash glucose sensor (FreeStyle Itz 2 Sensor kit) Discontinued Reason: Doctor's Order As directed 1 ea 3RF Coding Level of Care Code Est Pt Level 4 (70694) Diagnoses Type 2 diabetes mellitus with hyperglycemia, without long-term current use of insulin E11.65 Diabetes mellitus terminal supervisor insulin use: without terminal supervisor use
[2023-09-06 12:08] VITALS: BP 112/72; PULSE 74; O2SAT 97; BMI 26.4
== END 2023-09-06 12:29 | disposition home or self-care (01) ==
PROVIDERS: PCP Nurse Practitioner Family; Visit Provider Nurse Practitioner Family
DX: E11.65 Type 2 diabetes mellitus with hyperglycemia (principal)
CPT/HCPCS: 99214

== ENCOUNTER 2023-10-06 07:25 | Emergency (ER) | payer BC, SELFPAY ==
--- NOTE | ~2023-10-06 | XR_ITS ---
EXAMINATION: XR ANKLE, LEFT XR FOOT, LEFT CLINICAL INFORMATION: Rolled foot/ankle. Fall. COMPARISON: None TECHNIQUE: AP, lateral, and mortise views of the left ankle and AP, lateral, and oblique views of the left foot. FINDINGS: LEFT ANKLE: Marked lateral soft tissue swelling at the ankle. No appreciable fracture or malalignment. Ankle mortise is symmetric. Bone mineralization is normal. No joint effusion. LEFT FOOT: There is an oblique fracture through the fifth metatarsal with medial displacement of the distal fracture fragment by 4 mm consistent with surrounding soft tissue swelling. No additional fractures are identified. There is a multipartite os peroneum. Joints are well-preserved. XR/XR foot LT 2V IMPRESSION: 1. Oblique, mildly displaced fracture of the fifth metatarsal shaft. 2. Marked lateral soft tissue swelling at the ankle.
--- NOTE | ~2023-10-06 | XR_ITS ---
EXAMINATION: XR ANKLE, LEFT XR FOOT, LEFT CLINICAL INFORMATION: Rolled foot/ankle. Fall. COMPARISON: None TECHNIQUE: AP, lateral, and mortise views of the left ankle and AP, lateral, and oblique views of the left foot. FINDINGS: LEFT ANKLE: Marked lateral soft tissue swelling at the ankle. No appreciable fracture or malalignment. Ankle mortise is symmetric. Bone mineralization is normal. No joint effusion. LEFT FOOT: There is an oblique fracture through the fifth metatarsal with medial displacement of the distal fracture fragment by 4 mm consistent with surrounding soft tissue swelling. No additional fractures are identified. There is a multipartite os peroneum. Joints are well-preserved. XR/XR ankle LT 2V IMPRESSION: 1. Oblique, mildly displaced fracture of the fifth metatarsal shaft. 2. Marked lateral soft tissue swelling at the ankle.
[2023-10-06 07:36] VITALS: BP 147/83; PULSE 89; RESP 20; TEMP 37.2; O2SAT 96; BMI 25.8
--- NOTE | 2023-10-06 07:46 | ED.GENADULT ---
HPI - General Adult General Chief complaint: Extremity Injury, Lower Stated complaint: L ankle inj Time Seen by Provider: 10/06/23 07:46 Source: patient Mode of arrival: wheelchair Limitations: no limitations History of Present Illness ED Provider: Mckenna Ramos Pa-C HPI narrative: Patient is a 33 year old assigned male at with a history of DM presenting to the emergency department today with left foot pain. Patient states that he was at a concert last night when he jumped up and rolled his left ankle / foot. Patient denies any dizziness, lightheadedness, abdominal pain, nausea, vomiting, fever, chills, blurry vision, double vision, loss of vision, chest pain, difficulty breathing, shortness of breath, back pain, night sweats, pain with urination, increased urinary frequency, increased urinary urgency, blood in his urine or stool, syncope or a near syncopal episode, bowel incontinence, bladder incontinence, or any other complaints at this time. Onset (ago): day(s) (1) Location: left and lower extremity Radiation: non-radiation Severity: mild Severity scale (1-10): 4 Quality: aching and dull Pain Consistency: constant Relieving factors: immobilization Exacerbating factors: movement Associated symptoms: denies other symptoms Treatments prior to arrival: none Related Data Previous Rx's ?Medication ?Instructions ?Recorded lancets 28 gauge (FreeStyle #100 ea 09/07/21 Lancets) blood sugar diagnostic (QRGLTouch #100 ea 09/06/23 Ultra Test strips) blood-glucose sensor (Soluble SystemsStyle #2 ea 09/06/23 Itz 3 Sensor device) empagliflozin 10 mg tablet 10 mg PO DAILY #90 tabs 09/06/23 (Jardiance) metformin 500 mg tablet,extended 1,000 mg (2 x 500 mg) PO BID 90 09/06/23 release 24 hr days #360 tabs Allergies Allergy/AdvReac Type Severity Reaction Status Date / Time No Known Allergies Allergy Verified 10/06/23 07:38 Review of Systems Constitutional: Constitutional: Reports no additional constitutional complaints, Denies chills, Denies fever(s) and Denies night sweats Eyes: Eyes: Reports no additional eye complaints, Denies blurry vision, Denies change in vision, Denies diplopia, Denies eye discharge, Denies loss of vision and Denies eye pain ENT: Denies dizziness Cardiovascular: Cardiovascular: Reports no additional cardiovascular complaints, Denies chest pain, Denies lightheadedness, Denies Loss of Consciousness and Denies dyspnea Respiratory: Respiratory: Reports no additional respiratory complaints and Denies dyspnea Gastrointestinal: Gastrointestinal: Reports no additional gastrointestinal complaints, Denies abdominal pain, Denies melena, Denies hematochezia, Denies change in bowel habits and Denies change in stool character Genitourinary: Genitourinary: Reports no additional male genitourinary complaints, Denies hematuria, Denies oliguria, Denies difficulty urinating, Denies dysuria, Denies urinary frequency, Denies urinary hesitancy, Denies urinary incontinence and Denies urinary urgency Musculoskeletal: Musculoskeletal: Reports no additional musculoskeletal complaints, Denies numbness and Denies tingling Comments: left foot and ankle pain Neurologic: Denies dizziness, Denies loss of vision, Denies numbness and Denies tingling Psychiatric: Psychiatric: Reports no additional psychiatric complaints Endocrine: Endocrine: Reports no additional endocrine complaints Hematologic/Lymphatic: Hematologic/Lymphatic: Reports no additional hematologic/lymphatic complaints Allergic/Immunologic: Allergic/Immunologic: Reports no additional allergic/immunologic complaints [facility] Past Medical History Attestation statement: The following information was validated with the patient. 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 Current occupational exposures/hazards: No Sexual orientation: Straight/Heterosexual Gender identity: Male Cognitive needs: No Hearing needs: No Vision needs: No Physical Exam ED Vital Signs: Vital Signs - 24 hr 10/06/23 07:36 Temperature 98.9 F Pulse Rate 89 Respiratory Rate 20 Blood Pressure 147/83 H Pulse Oximetry 96 Oxygen Delivery Method Room Air BMI result Body Mass Index 25.8 Const General: cooperative, no acute distress, alert and awake Nutritional Appearance: well nourished Orientation/consciousness: patient oriented x3 Limitations: no limitations HENMT Head: Yes normal to inspection and Yes atraumatic Ears: hearing grossly normal bilaterally and external ears normal General nose exam: Normal external nose present, no nasal discharge noted and no epistaxis Face and sinus: Yes normal facial exam, No abrasion and No laceration Mouth: Normal oral and palatal mucosa present, no drooling and no muffled voice Eyes General: appearance normal, both eyes and all related structures Periorbital: periorbital findings normal Eyelids: Yes eyelids normal Conjunctivae: conjunctivae normal Pupils: Equal, round and reactive pupils present EOM: EOMs intact bilaterally Neck Neck: Yes normal visual inspection, Yes full ROM and Yes no lymphadenopathy Chest Chest palpation & inspection: normal inspection of the chest Resp Effort & Inspection: normal respiratory effort and able to speak in complete sentences GI Inspection: Yes normal to inspection Neuro General: patient oriented x3 and moves all extremities Cranial nerves: Yes Equal, round and reactive pupils present Cognition (Neuro): normal cognition Extrem Other: pain with palpation of the left dorsal foot along the lateral aspect with minimal swelling General: Yes full ROM and Yes capillary refill normal Psych Appearance: grossly normal Mental Status: mental status grossly normal Affect: normal affect Attitude: cooperative Thought process: Normal thought process present Thought content: Normal thought content present Insight: Good insight present (Psych) Procedures Orthopedic Splinting/Casting Injury #1: Side: left Lower Extremity Injury Location: foot Lower Extremity Immobilizer: posterior splint Other Orthopedic Equipment: crutches Medical Decision Making Medical Decision Making MDM Narrative: Patient is a 33 year old assigned male at with a history of DM presenting to the emergency department today with left foot and ankle pain. Patient's physical exam was as noted in the physical exam portion of this note. Patient's left foot and ankle x-rays showed an oblique mildly displaced fracture of the 5th metatarsal shaft. I spoke to the orthopedic team who agreed with my plan of a posterior short leg splint, non weight bearing status and follow up in the clinic. I explained my physical exam findings as well as all test results to the patient. I answered all questions asked by the patient. Patient's left lower extremity was placed in a posterior short leg splint without incident. Patient's PMS was intact prior to and after splint placement. Patient was given crutches and crutch instructions. I stressed the importance of the patient taking his medication as directed (either prescribed or as the over the counter packaging recommends). I stressed the importance of the patient following up with his primary care provider and an orthopedic provider. I stressed the importance of the patient returning to the emergency department immediately if his symptoms were to worsen or if he were to develop any dizziness, shortness of breath, difficulty breathing, chest pain, blurry vision, loss of vision, nausea, vomiting, abdominal pain, fever, chills, back pain, or any other complaints. Patient verbalized agreement and understanding with this treatment plan and discharge. Differential Diagnosis Differential Diagnoses: The differential diagnosis associated with the presentation includes L 5th metatarsal fracture Foot fracture Ankle fracture Foot sprain Ankle sprain Admission/Observation Consideration of admission/observation: Escalation of care including admission/observation considered Patient would have been admitted to the hospital had his work up had any findings where hospital admission was appropriate and his clinical presentation warranted hospital admission. Consult Healthcare Provider Management of the patient was discussed with: Control Clerk (spoke to the orthopedic team as noted in the MDM Rationale portion of this note.) Independent Interpretation I performed an independent interpretation of an: Plain X-Ray Interpretation: My interpretation is in agreement with the radiologist's impression of these imaging studies. EXAMINATION: XR ANKLE, LEFT XR FOOT, LEFT CLINICAL INFORMATION: Rolled foot/ankle. Fall. COMPARISON: None TECHNIQUE: AP, lateral, and mortise views of the left ankle and AP, lateral, and oblique views of the left foot. FINDINGS: LEFT ANKLE: Marked lateral soft tissue swelling at the ankle. No appreciable fracture or malalignment. Ankle mortise is symmetric. Bone mineralization is normal. No joint effusion. LEFT FOOT: There is an oblique fracture through the fifth metatarsal with medial displacement of the distal fracture fragment by 4 mm consistent with surrounding soft tissue swelling. No additional fractures are identified. There is a multipartite os peroneum. Joints are well-preserved. XR/XR foot LT 2V IMPRESSION: 1. Oblique, mildly displaced fracture of the fifth metatarsal shaft. 2. Marked lateral soft tissue swelling at the ankle. Dictated By: Maynor Brooks MD Signed By: Electronically signed by Maynor Brooks MD 10/06/23 8394 Radiology Impression Discussion of test interpretation with radiology: I have reviewed the radiologist's reading. Chronic Conditions Patient?s care impacted by: Diabetes Discharge Plan Discharge Clinical Impression: Metatarsal fracture Patient Disposition: Home, Self-Care Instructions: Crutch Instructions (ED), Foot Fracture in Adults (ED) Additional Instructions: Do NOT get the splint wet. Do NOT remove the splint. If your toes start to feel numb, tingle, or change sensation, you may loosen the outside AZUL wraps. If you find yourself loosening the AZUL wraps to the point of seeing the underlying splint material, STOP and return to the ER. Do NOT bear any weight on the left lower extremity. Follow up with your primary care provider and an orthopedic provider. Return to the emergency department immediately if your symptoms worsen or if you develop any dizziness, shortness of breath, difficulty breathing, chest pain, blurry vision, loss of vision, nausea, vomiting, abdominal pain, fever, chills, back pain, or any other complaints. Prescriptions: No Action (DME) lancets [FreeStyle Lancets] 28 gauge misc See Rx Instructions .MEDSUPPLY Qty: 100 4RF Rx Instructions: As directed (DME) FreeStyle Itz 3 Sensor Device See Rx Instructions .MEDSUPPLY Qty: 2 11RF Rx Instructions: As directed Jardiance 10 mg tablet 10 mg PO DAILY Qty: 90 0RF metformin 500 mg tablet extended release 24 hr 1,000 mg PO BID 90 Days Qty: 360 1RF (DME) OneTouch Ultra Test Strip See Rx Instructions .Route Qty: 100 8RF Rx Instructions: Test Once Daily Referrals: [facility] [Provider Group] (Call to establish and follow up with an orthopedic provider. ) Kimberly Germain, [facility] [employer] [Primary Care Provider] - Stand Alone Forms: Work/School Release Print Language: Icelandic
[2023-10-06 08:43] VITALS: BP 147/83; PULSE 89; RESP 20; TEMP 37.2; O2SAT 96
== END 2023-10-06 08:44 | disposition home or self-care (01) ==
PROVIDERS: Emergency Provider Emergency Medicine; PCP Nurse Practitioner Family
DX: S92.352A Displaced fracture of fifth metatarsal bone, left foot, initial encounter for closed fracture (principal); M25.572 Pain in left ankle and joints of left foot; X50.1XXA Overexertion from prolonged static or awkward postures, initial encounter; Y93.89 Activity, other specified; Y92.89 Other specified places as the place of occurrence of the external cause; Y99.8 Other external cause status; Z87.891 Personal history of nicotine dependence
CPT/HCPCS: 29515; 73600; 73620; 99284

== ENCOUNTER 2023-10-18 09:24 | Outpatient (AMB) | payer BC, SELFPAY ==
--- NOTE | 2023-10-18 09:44 | A.OFFVIS_ITS ---
Vital Signs 10/18/23 09:46 Height 5 ft 9 in Weight 175 lb BMI 25.8 Intake Visit Reasons: FC- Metatarsal Fx, DOI 10/05/23, Left ankle Intake Note: Elkin is 33 yo right hand dominant male who presents today with his spouse for an ED follow up s/p left ankle fracture, DOI 10/05/23. Patient reports he was at a concert and stepped on someone else's foot, falling with full weight on his left foot. Reports numbness and tingling on the toes and plantar aspect of the left foot. Patient states it hurts to move his toes. Denies prior surgeries or injuries to the left foot. Patient does have sensation on the toes. Patient is not taking anything for pain at this time. He is using crutches to aid ambulation. Allergies No Known Allergies Allergy (Verified 10/18/23 09:48) HPI HPI FC- Metatarsal Fx, DOI 10/05/23, Left ankle: Details: Patient is a 33-year-old male who presents for evaluation of left 5th metatarsal fracture, date of injury 10/05/2023. The patient reports that, on this day, he was at a concert, when he landed awkwardly on his left ankle and foot, resulting in forceful inversion of the left ankle and foot, and he felt a ?crack?. The patient reports that he began experiencing pain at time, as well as significant ecchymosis and edema. Today, the patient reports that he is not experiencing any pain at this time, and then his swelling has improved significantly since date of injury, but reports that if his his left foot is hanging down for prolonged periods of time, the swelling increases. Patient has been using crutches to aid with ambulation. Patient denies any numbness or tingling in the distal left lower extremity. No other acute complaints or concerns at this time. 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, 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 Current occupational exposures/hazards: No Sexual orientation: Straight/Heterosexual Gender identity: Male Cognitive needs: No Hearing needs: No Vision needs: No Review of Systems Const All systems reviewed & are unremarkable except as noted in HPI and below Physical Exam Vital Signs: BMI result Body Mass Index 25.8 Extrem Other: On inspection, there is noted to be mild edema over the left 5th metatarsal in the left lateral malleolus There is also noted to be old ecchymosis on the posterolateral foot and ankle No lacerations, abrasions, open areas noted No evidence of infection noted Patient reports mild to moderate tenderness to palpation over the 5th metatarsal of the left foot, as well as mild tenderness to palpation over the ATFL of the left ankle No tenderness to palpation over the lateral or medial malleolus No tenderness to palpation of the other metatarsal of the foot Patient is able to actively dorsiflex the foot to approximately 20 degrees past neutral without difficulty Patient is able to flex and extend the digits of the left foot fully without difficulty Distal sensation intact Capillary refill brisk Office Procedures Fracture Care Details: Left 5th metatarsal fracture Fracture Billing Code: Fracture Billing Code Results Reviewed Results Reviewed: X-rays obtained in the office today and independently reviewed by me, Simba Farerll PA-C, demonstrate displaced fracture of the left 5th metatarsal shaft, unchanged from previous x-rays. No other fracture or acute bony abnormality noted. Assessment & Plan Assessment & Plan (1) Fracture of fifth metatarsal bone of left foot: Code(s): S92.352A - Displaced fracture of fifth metatarsal bone, left foot, initial encounter for closed fracture Category: Medical Plan 1. Left 5th metatarsal fracture, displaced Date of injury 10/05/2023 Patient is discussed with Dr. Schneider, who was not available to see the patient in the office at this time, and a collaborative treatment plan was formed: Patient is educated about this injury and the typical recovery course At this time, the patient is informed that there is no surgery or acute intervention indicated for this fracture at this time Patient is educated that he should be wearing either a boot or a postoperative shoe on his left foot, and can weight bear as tolerated while in one of these Patient is educated that if he is experiencing discomfort with ambulation, he can continue use of crutches Patient is educated on proper placement and use of crutches 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, and feels that he will not be able to adequately fulfill his duties with a boot or postop shoe on, so a note was provided stating that the patient should be on desk duty or out of work at least until follow-up Patient will bring [facility] paperwork if his job can not give him desk duty Patient will follow-up in 2 weeks with repeat x-rays, sooner with any acute concerns Orders: Orders XR foot LT min 3V Today M79.672 - Pain in left foot Coding Level of Care Code New Pt Level 3 (39692) Diagnoses Fracture of fifth metatarsal bone of left foot S92.352A CPT Codes Fracture Care - Fracture Billing Code: Fracture Billing Code ([id number])
[2023-10-18 09:46] VITALS: BMI 25.8
== END 2023-10-18 10:44 | disposition home or self-care (01) ==
PROVIDERS: PCP Nurse Practitioner Family
DX: S92.352A Displaced fracture of fifth metatarsal bone, left foot, initial encounter for closed fracture (principal)
CPT/HCPCS: 99203

== ENCOUNTER 2023-10-18 10:49 | Outpatient (REF) | payer BC, SELFPAY ==
--- NOTE | ~2023-10-18 | XR_ITS ---
EXAMINATION: XR FOOT, LEFT CLINICAL INFORMATION: Left foot pain COMPARISON: Radiographs 10/06/2023 TECHNIQUE: AP, lateral, and oblique views of the left foot. FINDINGS: No change in the appearance of the slightly comminuted and displaced fracture of the distal fifth metatarsal. No new abnormality. XR/XR foot LT min 3V IMPRESSION: No change in the appearance of the distal fifth metatarsal fracture. Electronically signed by: Pedro Luis King MD 10/24/2023 08:55 AM EDT
== END 2023-10-18 10:50 | disposition home or self-care (01) ==
LOC: HO.HOSX 10:49
DX: M79.672 Pain in left foot (principal)
CPT/HCPCS: 73630

== ENCOUNTER 2023-11-01 13:23 | Outpatient (AMB) | payer BC, SELFPAY ==
--- NOTE | 2023-11-01 13:24 | MHC.OFFVIS ---
Vital Signs 11/01/23 13:57 Height 5 ft 9 in Weight 175 lb BMI 25.8 Intake Visit Reasons: OV Metatarsal Fx, DOI 10/05/23, Left ankle Intake Note: Elkin is 33 yo right hand dominant male who presents today for a follow up evaluation of a left metatarsal fracture, DOI 10/05/23. Patient reports he is feeling better and has had success walking on the boot without crutches. He is currently out of work due to his employer not offering light duty or desk duty. Allergies No Known Allergies Allergy (Verified 11/01/23 13:58) HPI HPI OV Metatarsal Fx, DOI 10/05/23, Left ankle: Details: Patient is a 33-year-old male who presents for follow-up evaluation for left 5th metatarsal fracture, date of injury 10/05/2023. Today, the patient reports that he is feeling better, and is experiencing significantly less pain he was at previous evaluation, however patient also states that he has been ?babying it?. 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 The patient states that he has not been doing much weight-bearing, but that the limited weight-bearing he has been doing has less painful since last evaluation. Patient reports that he is experiencing no numbness or tingling in the left lower extremity. No other acute complaints or concerns at this time. 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, 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 Current occupational exposures/hazards: No Sexual orientation: Straight/Heterosexual Gender identity: Male Cognitive needs: No Hearing needs: No Vision needs: No Physical Exam Vital Signs: BMI result Body Mass Index 25.8 Extrem Other: On inspection, there is noted to be very mild edema over the left 5th metatarsal in the left lateral malleolus No ecchymosis noted No lacerations, abrasions, open areas noted No evidence of infection noted Patient reports mild to moderate tenderness to palpation over the 5th metatarsal of the left foot No tenderness to palpation over the lateral or medial malleolus No tenderness to palpation of the other metatarsal of the foot Patient is able to actively dorsiflex the foot to approximately 40 degrees past neutral without difficulty Patient is able to flex and extend the digits of the left foot fully without difficulty Distal sensation intact Capillary refill brisk Results Reviewed Results Reviewed: X-rays obtained in the office today and independently reviewed by me, Simba Farrell PA-C, demonstrate displaced fracture of the left 5th metatarsal shaft, largely unchanged from previous x-rays. No other fracture or acute bony abnormality noted. Assessment & Plan Assessment & Plan (1) Fracture of fifth metatarsal bone of left foot: Code(s): S92.352A - Displaced fracture of fifth metatarsal bone, left foot, initial encounter for closed fracture Category: Medical Plan 1. Left 5th metatarsal shaft fracture, displaced Date of injury 10/05/2023 At this time, the patient is informed that he can weightbear as tolerated, and will no longer require the use of crutches, unless he is experiencing very significant discomfort However, the patient is informed that he should remain in the walking boot whenever he is bearing weight, to prevent further displacement of the fracture Patient is educated that when he is at rest, and not bearing weight, he should remove his foot and ankle from the boot and work on gentle range of motion about the foot and ankle to prevent stiffness Patient is amenable to this plan Due to the patient's work as a police crime scene technician, he likely will not be able to return to work until his foot is healed, and per [place] police department this is their desire as well. The patient is informed that he will be out of work until follow-up, at which point we may be able to explore getting him back on light duty or desk duty, as his fracture should have significant healing by that time. Patient will follow-up in 6 weeks with repeat x-rays, sooner with any acute Orders: Orders XR foot LT min 3V 11/01/23 M79.672 - Pain in left foot Coding Level of Care Code Est Pt Level 3 (99325) Diagnoses Fracture of fifth metatarsal bone of left foot S92.352A
[2023-11-01 13:57] VITALS: BMI 25.8
== END 2023-11-01 14:12 | disposition home or self-care (01) ==
PROVIDERS: PCP Nurse Practitioner Family
DX: S92.352A Displaced fracture of fifth metatarsal bone, left foot, initial encounter for closed fracture (principal)
CPT/HCPCS: 99213

== ENCOUNTER 2023-11-01 13:33 | Outpatient (REF) | payer BC, SELFPAY ==
--- NOTE | ~2023-11-01 | XR_ITS ---
EXAMINATION: XR FOOT, LEFT CLINICAL INFORMATION: Left foot pain. Fracture. COMPARISON: Left foot radiographs dated 10/18/2023. TECHNIQUE: AP, lateral, and oblique views of the left foot. FINDINGS: Displaced and comminuted fracture through the distal diaphysis of the 5th metatarsal with cortical step-off measuring 0.5 cm in ML dimension. Anatomic alignment is similar when compared to the prior examination without significant new bone/callus formation. No new fracture or dislocation. No joint space narrowing or marginal osteophytes. No osseous erosion. XR/XR foot LT min 3V IMPRESSION: Displaced and comminuted fracture through the distal 5th metatarsal with anatomic alignment. No significant new bone/callus formation. Electronically signed by: Chase Aguiar MD 11/07/2023 02:15 PM EDT
== END 2023-11-01 13:34 | disposition home or self-care (01) ==
LOC: HO.HOSX 13:33
PROVIDERS: PCP Nurse Practitioner Family
DX: M79.672 Pain in left foot (principal); S92.352D Displaced fracture of fifth metatarsal bone, left foot, subsequent encounter for fracture with routine healing
CPT/HCPCS: 73630

== ENCOUNTER 2023-12-09 11:50 | Outpatient (REF) | payer BC, SELFPAY ==
[2023-12-09 13:55] LABS: Alanine Aminotransferase 27 U/L (0-40); Albumin Level 4.5 g/dL (3.5-5.0); Alkaline Phosphatase 41 U/L (39-117); Anion Gap 13 (12-20); Aspartate Amino Transferase 21 U/L (5-37); Bilirubin Total 0.6 mg/dL (0.0-1.0); Blood Urea Nitrogen 18 mg/dL (9-16); Calcium 9.3 mg/dL (8.4-10.2); Carbon Dioxide 27 mmol/L (22-29); Chloride 103 mmol/L (96-108); Estimated Glomerular Filt Rate > 60; Glucose Random 122 mg/dL (60-115); Potassium 4.1 mmol/L (3.3-5.1); Sodium 139 mmol/L (135-145); Total Protein 7.1 g/dL (6.5-8.0)
[2023-12-09 13:59] LABS: Estimated Average Glucose 148 mg/dL; Hemoglobin A1C 177.6182 umol/L; Hemoglobin A1c % 6.8 % (<6.0); Total Hemoglobin (HGBA1C) 3532.8208 umol/L
== END 2023-12-09 11:51 | disposition home or self-care (01) ==
LOC: HO.WFDLDS 11:50
PROVIDERS: Visit Provider Nurse Practitioner Family
DX: E11.65 Type 2 diabetes mellitus with hyperglycemia (principal); F41.9 Anxiety disorder, unspecified; E66.812 Obesity, class 2; Z68.35 Body mass index [BMI] 35.0-35.9, adult
CPT/HCPCS: 36415; 80053; 83036; 96127

== ENCOUNTER 2023-12-09 12:22 | Outpatient (AMB) | payer BC, SELFPAY ==
--- NOTE | 2023-12-09 12:28 | MHC.PC.OV ---
Vital Signs 12/09/23 12:29 Height 5 ft Weight 180 lb 4 oz BMI 35.2 BP 112/70 Blood Pressure Location Lt brachial Position Sitting Respiration 13 Pulse 87 Pulse Source Pulse Oximeter Pulse Oximetry (%) 97 Oxygen Delivery Method Room Air Intake Visit Reasons: FU DM w/ hyperglycemia Intake Note: follow up diabetes Allergies No Known Allergies Allergy (Verified 12/09/23 12:29) Medication List - Last Reconciled 12/09/23 by RAAM FossP- blood sugar diagnostic (OneTouch Ultra Test strips) Test Once Daily blood-glucose sensor (eMaginStyle Itz 3 Sensor device) As directed empagliflozin (Jardiance) 10 mg PO DAILY lancets (FreeStyle Lancets) As directed metformin ER 1,000 mg (2 x 500 mg) PO BID 90 days Tobacco use date assessed: 05/30/23 Dental Screening Dental Screen Date: 07/24/23 HPI HPI Comments History of Present Illness Details 33-year-old male with diabetes 2, generalized anxiety disorder, Displaced fracture of fifth metatarsal bone, left foot 09/2023 s/p vasectomy Health maintenance DME 10/21/20 for diabetic retinopathy [facility] Tdap Flu declined Here today to fu on DM Has not been able to exercise given L foot fracture; still in walking boot; out of work Has spikes when eating carbs , otherwise glucose better A1c 7.0% today, which is much improved CGM data reviewed GMI 7.4% No lows Denies polyuria, polydipsia, polyphasia, complaints such as itching, discharge or rash. Declined flu shot Labs from today show normal electrolytes, normal renal function, random glucose 122, normal LFTs Exam Awake alert oriented Mucous membranes moist Regular rate and rhythm Lung sounds clear to auscultation bilat Abdomen soft nontender L foot in walking boot Plan Great improvement in glucose. Continue metformin a 1000 mg p.o. b.i.d. and Jardiance 10 mg p.o. daily. Overdue for a diabetic eye exam, advised for him to schedule this immediately. Continue using continuous glucose monitor Exercise when walking boot off, work on controlling diet Return to office in February for complete physical exam, sooner as needed This note is constructed using voice recognition software. While every effort has been made to ensure accuracy in auto accessories installer, still errors may have been included Sometimes, these errors may affect the content or meaning of the given sentence . Total time spent caring for the patient today was 30 minutes. This includes time spent before the visit reviewing the chart, time spent during the visit, and time spent after the visit on documentation [facility] Medical History Costochondral chest pain No pertinent past medical history Surgical History History of vasectomy Family History Other Substance abuse Social History (Updated 10/18/23 @ 09:49 by ALIA Ferrer) Household Members: Spouse and Children Household Members Other:: children x3 Housing: House 75 years or older and lives alone: No Alcohol intake: never Patient Tobacco Use Status: Former Tobacco user Tobacco use type: Cigarette e-Cigarette/Vaping Use: Never Used service: No Current occupational status: employed 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 1. Little interest or pleasure in doing things: not at all 2. Feeling down, depressed, or hopeless: not at all 3. Trouble falling or staying asleep, or sleeping too much: not at all 4. Feeling tired or having little energy: not at all 5. Poor appetite or overeating: not at all 6. Feeling bad about yourself - or that you are a failure or have let yourself or your family down: not at all 7. Trouble concentrating on things, such as reading the newspaper or watching television: not at all 8. Moving or speaking so slowly that other people could have noticed. Or the opposite - being so fidgety or restless that you have been moving around a lot more than usual: not at all 9. Thoughts that you would be better off or of hurting yourself in some way: not at all Total score: 0 93652 - PHQ-9 Billing: Yes Source: Developed by Drs. Kedar Thomas, Jovany Gomez and colleagues, with an educational ana laura from [employer]. Thrive Questionnaire Date Thrive assessed: 03/28/22 NIR-7 AMB Questionnaire NIR-7 Date NIR - 7 assessed: 12/09/23 Feeling nervous, anxious, or on edge: 0 = Not at all Not being able to stop or control worryin = Not at all Worrying too much about different things: 0 = Not at all Trouble relaxin = Not at all Being so restless that it is hard to sit still: 0 = Not at all Becoming easily annoyed or irritable: 0 = Not at all Feeling afraid as if something awful might happen: 0 = Not at all Total NIR-7 score (0-4 normal; 5-9 mild; 10-14 moderate; 15-21 severe): 0 Source: Developed by Drs. Kedar Thomas, Rosie Lei, Jovany Torres and colleagues, with an educational ana laura from [employer]. NIR-7 Assessment Billing NIR-7 Assessment Tool: NIR-7 Assessment 70179 Physical exam (Primary Care) Vital Signs: Last Vital Signs Pulse 87 12/09/23 12:29 Resp 13 12/09/23 12:29 BP 112/70 12/09/23 12:29 Pulse Ox 97 12/09/23 12:29 Oxygen Delivery Method Room Air 12/09/23 12:29 BMI result Body Mass Index 35.2 BMI Assessment/Plan discussion: High BMI High, discussed plan: lifestyle Tobacco/Smoking Status: Tobacco use Status Tobacco use date assessed 05/30/23 12/09/23 12:29 Patient Tobacco Use Status Former Tobacco user 12/09/23 12:29 Tobacco use type Cigarette 12/09/23 12:29 e-Cigarette/Vaping Use Never Used 12/09/23 12:29 PHQ-9: PHQ-9 Score PHQ-9: Total score 0 12/09/23 15:13 Thrive Assessment: Date of Thrive Assessment Date Thrive assessed 03/28/22 12/09/23 12:29 Results AMB Hemoglobin A1c AMB Hemoglobin A1c 7.0 % Last Edit by Tita Mcelroy MA on 12/09/23 14:17 Results Reviewed Results Reviewed: Laboratory Last Values Hgb A1c (Clinic) 7.0 % (4.0-6.0) H 12/09/23 14:16 Coding Level of Care Code Est Pt Level 4 (36172) Complex EM visit Add On G2211 Diagnoses Diabetes mellitus type 2 with complications E11.8 Obesity, Class II, BMI 35-39.9 E66.812 BMI 35.0-35.9,adult Z68.35 Additional Codes NIR-7 Assessment Billing - NIR-7 Assessment Tool: NIR-7 Assessment 42146 ([id number]) Assessment & Plan Assessment & Plan (1) Diabetes mellitus type 2 with complications: Code(s): E11.8 - Type 2 diabetes mellitus with unspecified complications Category: Medical Plan: . (2) Obesity, Class II, BMI 35-39.9: Code(s): E66.812 - Obesity, class 2 Category: Medical Plan: . (3) BMI 35.0-35.9,adult: Code(s): Z68.35 - Body mass index [BMI] 35.0-35.9, adult Category: Medical Plan: . Plan . Orders: Orders AMB Hemoglobin A1c Today Z13.9 - Encounter for screening, unspecified Comprehensive [place]. Panel Fast Today E11.8 - Type 2 diabetes mellitus with unspecified complications, Z00.00 - Encounter for general adult medical examination without abnormal findings Lipid Panel Today E11.8 - Type 2 diabetes mellitus with unspecified complications, Z00.00 - Encounter for general adult medical examination without abnormal findings Hemoglobin A1c Today E11.8 - Type 2 diabetes mellitus with unspecified complications, Z00.00 - Encounter for general adult medical examination without abnormal findings Vitamin B12 and Folate Today E11.8 - Type 2 diabetes mellitus with unspecified complications, Z00.00 - Encounter for general adult medical examination without abnormal findings TSH reflex Free T4 Today E11.8 - Type 2 diabetes mellitus with unspecified complications, Z00.00 - Encounter for general adult medical examination without abnormal findings Microalbumin, Random (w Creat) Today E11.8 - Type 2 diabetes mellitus with unspecified complications, Z00.00 - Encounter for general adult medical examination without abnormal findings Medications: Refilled empagliflozin (Jardiance) 10 mg PO DAILY 90 tabs 1RF metformin ER 1,000 mg (2 x 500 mg) PO BID 90 days 360 tabs 1RF
[2023-12-09 12:29] VITALS: BP 112/70; PULSE 87; RESP 13; O2SAT 97; BMI 35.2
== END 2023-12-09 13:10 | disposition home or self-care (01) ==
PROVIDERS: PCP Nurse Practitioner Family; Visit Provider Nurse Practitioner Family
DX: E11.8 Type 2 diabetes mellitus with unspecified complications (principal); E66.812 Obesity, class 2; Z68.35 Body mass index [BMI] 35.0-35.9, adult; Z13.9 Encounter for screening, unspecified

== ENCOUNTER 2023-12-13 09:25 | Outpatient (REF) | payer BC, SELFPAY ==
--- NOTE | ~2023-12-13 | XR_ITS ---
EXAMINATION: XR FOOT LEFT 3 VIEWS CLINICAL INFORMATION: Pain in left foot M79.672. COMPARISON: XR Left foot 11/01/2023 TECHNIQUE: AP, lateral, and oblique views of the left foot. FINDINGS: Interval healing of fracture of the fifth metatarsal. Mild displacement is seen which is stable. Joint spaces are well-maintained. Adjacent soft tissue swelling seen. XR/XR foot LT min 3V IMPRESSION: Interval healing of fifth metatarsal fracture Electronically signed by: Richmond Ruvalcaba MD 02/07/2024 10:42 AM EST
== END 2023-12-13 09:26 | disposition home or self-care (01) ==
LOC: HO.HOSX 09:25
DX: M79.672 Pain in left foot (principal)
CPT/HCPCS: 73630

== ENCOUNTER 2023-12-13 11:43 | Outpatient (AMB) | payer BC, SELFPAY ==
[2023-12-13 11:50] VITALS: BMI 35.2
--- NOTE | 2023-12-13 11:50 | MHC.OFFVIS ---
Vital Signs 12/13/23 11:50 Height 5 ft Weight 180 lb BMI 35.2 Intake Visit Reasons: OV Metatarsal Fx, DOI 10/05/23, Left ankle Intake Note: Elkin is 33 year old right hand dominant male who presents today for a follow up visit of a left 5th metatarsal fracture, DOI 10/05/23. Patient states that he is doing well and doesn't have much pain. Allergies No Known Allergies Allergy (Verified 12/13/23 11:53) HPI HPI OV Metatarsal Fx, DOI 10/05/23, Left ankle: Details: Patient is a 33-year-old male who presents for follow-up evaluation of left 5th metatarsal shaft fracture, date of injury 10/05/2023. Today, the patient reports that he is experiencing minimal discomfort at baseline, and has been weight-bearing in his boot without difficulty. Patient reports that the swelling in his foot has completely resolved. Patient denies any numbness or tingling in the left foot. No other acute complaints or concerns at this time. HPI Comments Details: Patient is a 33-year-old male who presents for follow-up evaluation of displaced left 5th metatarsal shaft fracture, date of injury 10/05/2023. Today, the patient reports that he is feeling much better, and experiences minimal pain with ambulation PFSH Medical History Costochondral chest pain No pertinent past medical history Surgical History History of vasectomy Family History Other Substance abuse Social History (Updated 10/18/23 @ 09:49 by ALIA Ferrer) Household Members: Spouse and Children Household Members Other:: children x3 Housing: House 75 years or older and lives alone: No Alcohol intake: never Patient Tobacco Use Status: Former Tobacco user Tobacco use type: Cigarette e-Cigarette/Vaping Use: Never Used service: No Current occupational status: employed 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, 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 Current occupational exposures/hazards: No Sexual orientation: Straight/Heterosexual Gender identity: Male Cognitive needs: No Hearing needs: No Vision needs: No Physical Exam Vital Signs: BMI result Body Mass Index 35.2 Extrem Other: On inspection, there is noted to be no edema over the left 5th metatarsal No ecchymosis noted No lacerations, abrasions, open areas noted No evidence of infection noted Patient reports no tenderness to palpation over the 5th metatarsal of the left foot No tenderness to palpation over the lateral or medial malleolus No tenderness to palpation of the other metatarsal of the foot Patient is able to actively dorsiflex the foot to approximately 40 degrees past neutral without difficulty Patient is able to flex and extend the digits of the left foot fully without difficulty Distal sensation intact Capillary refill brisk Results Reviewed Results Reviewed: X-rays obtained in the office today and independently reviewed by me, Simba Farrell PA-C, demonstrate displaced fracture of left 5th metatarsal shaft with evidence of interval bony healing. Assessment & Plan Assessment & Plan (1) Fracture of fifth metatarsal bone of left foot: Code(s): S92.352A - Displaced fracture of fifth metatarsal bone, left foot, initial encounter for closed fracture Category: Medical Plan 1. 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, and he states that he was told by his job that he needed to be 100% heal before returning to work, but 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
== END 2023-12-13 12:17 | disposition home or self-care (01) ==
PROVIDERS: PCP Nurse Practitioner Family
DX: S92.352A Displaced fracture of fifth metatarsal bone, left foot, initial encounter for closed fracture (principal)
CPT/HCPCS: 99213

== ENCOUNTER 2024-01-10 11:37 | Outpatient (AMB) | payer BC, SELFPAY ==
--- NOTE | 2024-01-10 11:54 | MHC.OFFVIS ---
Vital Signs 01/10/24 11:57 Height 5 ft 9 in Weight 175 lb BMI 25.8 Intake Visit Reasons: OV-Metatarsal Fx, DOI 10/05/23, Left ankle-w/xray Intake Note: Elkin is 33 year old right hand dominant male who presents today for a follow up visit of a left 5th metatarsal fracture, DOI 10/05/23. Patient reports his left foot feels okay. He states he has not been having pain. The boot has been okay and has been wearing it with ambulation. He would like to discuss work status today. No other concerns. been wearing boot? Allergies No Known Allergies Allergy (Verified 01/10/24 11:57) HPI HPI OV-Metatarsal Fx, DOI 10/05/23, Left ankle-w/xray: Details: Patient is a 33-year-old male who presents for follow-up evaluation of left 5th metatarsal fracture, date of injury 10/05/2023. Today, the patient reports that he is feeling much better, and experiences no discomfort with ambulation at baseline. Patient states that he feels he is recovering very well. Patient inquires if the fracture has fully healed. Denies any numbness or tingling in the left lower extremity. No other acute complaints or concerns at this time. 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 Current occupational exposures/hazards: No Sexual orientation: Straight/Heterosexual Gender identity: Male Cognitive needs: No Hearing needs: No Vision needs: No Physical Exam Vital Signs: BMI result Body Mass Index 25.8 Extrem Other: On inspection, there is noted to be no edema over the left 5th metatarsal No ecchymosis noted No lacerations, abrasions, open areas noted No evidence of infection noted Patient reports no tenderness to palpation over the 5th metatarsal of the left foot No tenderness to palpation over the lateral or medial malleolus No tenderness to palpation of the other metatarsal of the foot Patient is able to actively dorsiflex the foot to approximately 40 degrees past neutral without difficulty Patient is able to flex and extend the digits of the left foot fully without difficulty Distal sensation intact Capillary refill brisk Results Reviewed Results Reviewed: X-rays obtained in the office today and independently reviewed by me, Simba Farrell PA-C, demonstrate displaced fracture of left 5th metatarsal shaft with evidence of interval bony healing. Assessment & Plan Assessment & Plan (1) Fracture of fifth metatarsal bone of left foot: Code(s): S92.352A - Displaced fracture of fifth metatarsal bone, left foot, initial encounter for closed fracture Category: Medical Plan 1. 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, and he states that he was told by his job that he needed to be 100% heal before returning to work, 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
[2024-01-10 11:57] VITALS: BMI 25.8
== END 2024-01-10 12:18 | disposition home or self-care (01) ==
PROVIDERS: PCP Nurse Practitioner Family
DX: S92.352A Displaced fracture of fifth metatarsal bone, left foot, initial encounter for closed fracture (principal)
CPT/HCPCS: 99213

== ENCOUNTER 2024-01-10 14:34 | Outpatient (REF) | payer BC, SELFPAY ==
--- NOTE | ~2024-01-10 | XR_ITS ---
EXAMINATION: XR FOOT, LEFT CLINICAL INFORMATION: M79.672 - Pain in left foot COMPARISON: 12/13/2023 TECHNIQUE: AP, lateral, and oblique views of the left foot. FINDINGS: Displaced fracture again seen in the fifth metatarsal. The fracture fragments demonstrate stable positioning. There is slight interval increase in the callus formation consistent with interval healing. XR/XR foot LT min 3V IMPRESSION: Healing fracture of the fifth metatarsal. Electronically signed by: Richmond Ruvalcaba MD 02/07/2024 11:04 AM ROSALIA FLORES
== END 2024-01-10 14:35 | disposition home or self-care (01) ==
LOC: HO.HOSX 14:34
DX: M79.672 Pain in left foot (principal)
CPT/HCPCS: 73630

== ENCOUNTER 2024-02-03 08:06 | Outpatient (REF) | payer BC, SELFPAY ==
--- NOTE | ~2024-02-03 | XR_ITS ---
EXAMINATION: XR FOOT, LEFT CLINICAL INFORMATION: M79.672 - Pain in left foot COMPARISON: 01/10/2024 TECHNIQUE: AP, lateral, and oblique views of the left foot. FINDINGS: Mildly displaced fracture of the fifth metatarsal is unchanged in position. There is increased callus formation consistent with interval healing XR/XR foot LT min 3V IMPRESSION: Healing fracture of the fifth metatarsal. Electronically signed by: Richmond Ruvalcaba MD 02/07/2024 10:41 AM ROSALIA FLORES
== END 2024-02-03 08:07 | disposition home or self-care (01) ==
LOC: HO.HOSX 08:06
DX: M79.672 Pain in left foot (principal); S92.352D Displaced fracture of fifth metatarsal bone, left foot, subsequent encounter for fracture with routine healing
CPT/HCPCS: 73630

== ENCOUNTER 2024-02-03 13:28 | Outpatient (AMB) | payer BC, SELFPAY ==
--- NOTE | 2024-02-03 13:35 | A.OFFVIS_ITS ---
Intake Visit Reasons: OV-Metatarsal Fx, DOI 10/05/23, Left ankle-w/xray Intake Note: Elkin is 33 year old right hand dominant male who presents today for a follow up visit of a left 5th metatarsal fracture, DOI 10/05/23. Patient has not been at work due to his job not having light duty restriction work. He expresses no pain with ambulation and weight bearing in the boot. He has tried some ambulation without the boot and says he has not experienced an exacerbation in pain. Denies numbness and tingling. Allergies No Known Allergies Allergy (Verified 02/03/24 13:37) HPI HPI OV-Metatarsal Fx, DOI 10/05/23, Left ankle-w/xray: Details: Patient is a 33-year-old male who presents for evaluation of 5th metatarsal fracture, date of injury 10/05/2023. Today, the patient reports he is feeling much better, and has no pain in the left foot at baseline or with ambulation. Patient has still been wearing the walking boot to try to facilitate as much healing as possible, with hopes of returning to work soon. Patient inquires if there is more healing on x-rays taken today. No other acute complaints or concerns at this time. 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 Current occupational exposures/hazards: No Sexual orientation: Straight/Heterosexual Gender identity: Male Cognitive needs: No Hearing needs: No Vision needs: No Review of Systems Const All systems reviewed & are unremarkable except as noted in HPI and below Physical Exam Extrem Other: On inspection, there is noted to be no edema over the left 5th metatarsal No ecchymosis noted No lacerations, abrasions, open areas noted No evidence of infection noted Patient reports no tenderness to palpation over the 5th metatarsal of the left foot No tenderness to palpation over the lateral or medial malleolus No tenderness to palpation of the other metatarsal of the foot Patient is able to actively dorsiflex the foot to approximately 40 degrees past neutral without difficulty Patient is able to flex and extend the digits of the left foot fully without difficulty Distal sensation intact Capillary refill brisk Results Reviewed Results Reviewed: X-rays obtained in the office today and independently reviewed by me, Simba Farrell PA-C, demonstrate displaced fracture of left 5th metatarsal shaft with evidence of interval bony healing. Assessment & Plan Assessment & Plan (1) Fracture of fifth metatarsal bone of left foot: Code(s): S92.352A - Displaced fracture of fifth metatarsal bone, left foot, initial encounter for closed fracture Category: Medical Plan 1. Left 5th metatarsal shaft fracture, displaced Date of injury 10/05/23 Patient appears to be recovering well from his injury Patient is educated about the typical recovery course At this time, due to the patient's complete lack of symptoms and evidence of good healing on x-rays, he can return to work on a full duty basis at this time Patient was amenable to this plan Patient is educated that if he experiences increasing consistent pain, swelling, redness, or any other symptoms that concern him, he should stop working and call our office for reassessment Patient expresses understanding of this Patient will follow-up as needed with any acute concerns Orders: Orders XR foot LT min 3V Today M79.672 - Pain in left foot Coding Level of Care Code Global (83068) Diagnoses Fracture of fifth metatarsal bone of left foot S92.352A
== END 2024-02-03 14:09 | disposition home or self-care (01) ==
PROVIDERS: PCP Nurse Practitioner Family; Referring Provider Nurse Practitioner Family
DX: S92.352A Displaced fracture of fifth metatarsal bone, left foot, initial encounter for closed fracture (principal)
CPT/HCPCS: 99213

== ENCOUNTER 2024-05-13 12:28 | Outpatient (AMB) | payer BC, SELFPAY ==
--- NOTE | 2024-05-13 12:30 | A.OFFPC_ITS ---
Vital Signs 3 05/13/24 12:36 Height 5 ft 9 in Weight 174 lb 6 oz BMI 25.7 BP 118/70 Blood Pressure Location Lt brachial Position Sitting Respiration 12 Pulse 73 Pulse Source Pulse Oximeter Temp 98.3 F Temp Source Oral Pulse Oximetry (%) 97 Oxygen Delivery Method Room Air Intake Visit Reasons: Skin condition on his leg Intake Note: Patient complaining of itchy rash on both legs x 1 year General Cleaner Required: No Allergies No Known Allergies Allergy (Verified 05/13/24 12:47) Medication List - Last Reconciled 05/13/24 by ARAM FossP- blood sugar diagnostic (OneTouch Ultra Test strips) Test Once Daily blood-glucose sensor (Centeris CorporationStyle Itz 3 Sensor device) As directed empagliflozin (Jardiance) 10 mg PO DAILY lancets (FreeStyle Lancets) As directed metformin ER 1,000 mg (2 x 500 mg) PO BID 90 days Tobacco use date assessed: 05/13/24 Dental Screening Dental Screen Date: 05/13/24 Did you have a dental visit in the last 12 months?: Yes Did you have a dental problem in the last 6 months where you did not have access to dental care?: No Was dental information given to patient?: Patient has dentist HPI HPI Comments 2 History of Present Illness0 Details 33-year-old male with diabetes 2, genera lized anxiety disorder, Displaced fracture of fifth metatarsal bone, left foot 09/2023 s/p vasectomy Social: , 3 children, 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 - The rash, persistent for about a year, affects lower legs only and increases in severity during the winter. - The rash has not responded to over-the -counter lotions and is thought to be exacerbated by sweat from work attire. - Associated symptoms include significan t itching but no presence on the feet or genital area, and the rash does not open up. - DM2 uncontrolled, Elevated A1c noted at 8.6, with previous A1c level of 7.4, alongside considerations of inconsistent diabetic management. Not wearing CGM. Lifestyle busy, does not eat as should - on metformin and Jardiance, and acknow ledges challenges with consistent dietary control related to family meal habits. Physical Exam General: Well developed, well nourished, in no acute distress. Appears stated age. Head: Normocephalic, atraumatic. Musculoskeletal: Joints are nontender, without swelling, redness, or effusions. Pulses: Peripheral pulses are equal and palpable bilaterally. Extremities: Rash present on both lower legs, not on feet or upper body. No clubbing, cyanosis nor edema is noted. Psych: Mood and affect appropriate. See images Results - Labs: A1c currently at 8.6. Discussion Notes I discussed with the patient the likely diagnosis of eczema causing chronic pruritic dermatitis and the treatment options available. A topical steroid, betamethasone, was recommended to be applied twice daily to the affected areas, emphasizing the need for a consistent treatment schedule of two weeks on, one week off to prevent skin atrophy. I advised arranging a dermatology consultation with [facility] for further evaluation and management, should the topical treatment prove insufficient. The patient's challenging A1c was addressed, reinforcing the importance of consistent CGM use and discussions on diet modification to improve diabetic control were had. I encouraged routine lab work scheduling, particularly after the given medication plan. Follow-up instructions and referrals were clearly outlined, leaving the patient informed with clear steps forward. Assessment and Plan 1. Chronic Pruritic Dermatitis: Presenti ng as likely eczema, the patient was advised on the application of betamethasone ointment. The treatment plan includes a structured application schedule to reduce the potential for dermal atrophy, alongside a dermatology referral for comprehensive evaluation if the rash persists. 2. Diabetes Mellitus with Elevated A1c: With A1c increased to 8.6, recommendations include continued monitoring via CGM, adherence to prescribed medications?metformin and Jardiance?and dietary adjustments influenced by familial eating habits for enhanced glycemic management. - Get outstanding labs done today Patient Instructions - Apply betamethasone cream to affected areas twice daily for two weeks, followed by a week off. Repeat as necessary. - Follow a consistent application schedu le to prevent skin damage. - Ensure prescriptions are refilled and medications taken as directed. - Schedule and undergo routine lab tests . - Maintain a diabetic-friendly diet, con sidering reducing high-sugar foods. - Make arrangement with [facility] at the office location convenient for you should symptoms persist. - FU in June for CPE, sooner PRN Consent Informed consent for the application of topical steroids, specifically betamethasone, was obtained from the patient after discussing potential risks such as thinning of the skin. Consent includes a dermatology referral for further evaluation, understanding the appointment could be delayed, but providing an avenue for additional care if needed. All questions were addressed, and the patient agreed to the management plan as outlined. Patient was informed and verbally consented to the use of an ambient scribe for clinic note documentation during this visit. Total time spent caring for the patient today was 30 minutes. This includes time spent before the visit reviewing the chart, time spent during the visit, and time spent after the visit on documentation, reviewing laboratory results, diagnostic imaging, medications, performing a medically necessary evaluation, counseling on diagnoses, care coordination, ordering appropriate tests, ordering appropriate medications, review of tests performed by other providers, reporting test results with the patient, communication with other healthcare providers. 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 1. Little interest or pleasure in doing things: not at all 2. Feeling down, depressed, or hopeless: not at all 3. Trouble falling or staying asleep, or sleeping too much: not at all 4. Feeling tired or having little energy: not at all 5. Poor appetite or overeating: not at all 6. Feeling bad about yourself - or that you are a failure or have let yourself or your family down: not at all 7. Trouble concentrating on things, such as reading the newspaper or watching television: not at all 8. Moving or speaking so slowly that other people could have noticed. Or the opposite - being so fidgety or restless that you have been moving around a lot more than usual: not at all 9. Thoughts that you would be better off or of hurting yourself in some way: not at all Total score: 0 Depression Screening Interpretation: Negative Depression Screening Done: Yes 00402 - PHQ-9 Billing: Yes Source: Developed by Drs. Kedar Thomas, Rosie Lei, Jovany Torres and colleagues, with an educational ana laura from [employer]. Thrive Questionnaire Date Thrive assessed: 05/13/24 I am a: Patient What is your living situation today?: I have a steady place to live Within the past 12 months, did the food you bought not last and you didn't have the money to get more?: I choose not to answer this question Within the past 12 months, did you worry whether your food would run out before you got money to buy more?: I choose not to answer this question Do you have trouble paying for medicines?: No Do you have trouble getting transportation to medical appointments?: No Do you have trouble paying your heating and electricity bill?: No Do you have trouble taking care of your child, family member or friend?: No Do you have trouble with day-to-day activities such as bathing, preparing meals, shopping, managing finances, etc.?: No Are you currently unemployed and looking for a job?: No Are you interested in more education?: No Please select the resources that you would like help with: None Currently or been in a relationship where the following occur: No concerns reported THRIVE Score: 0 AUDIT C Alcohol Use Questionnaire (AUDIT-C) 1. How often do you have a drink containing alcohol?: Monthly or less 2. How many drinks containing alcohol do you have on a typical day when you are drinking?: 1 or 2 3. How often do you have six or more drinks on one occasion?: Never Total Score: 1 Score Reviewed/Action Taken: Yes NIR-7 AMB Questionnaire NIR-7 Date NIR - 7 assessed: 05/13/24 Feeling nervous, anxious, or on edge: 0 = Not at all Not being able to stop or control worryin = Not at all Worrying too much about different things: 0 = Not at all Trouble relaxin = Not at all Being so restless that it is hard to sit still: 0 = Not at all Becoming easily annoyed or irritable: 0 = Not at all Feeling afraid as if something awful might happen: 0 = Not at all Total NIR-7 score (0-4 normal; 5-9 mild; 10-14 moderate; 15-21 severe): 0 Source: Developed by Drs. Kedar Thomas, Rosie Lei, Jovany Torres and colleagues, with an educational ana laura from [employer]. NIR-7 Assessment Billing NIR-7 Assessment Tool: NIR-7 Assessment 04290 Physical exam (Primary Care) Vital Signs: Last Vital Signs Temp 98.3 F 05/13/24 12:36 Pulse 73 05/13/24 12:36 Resp 12 05/13/24 12:36 BP 118/70 05/13/24 12:36 Pulse Ox 97 05/13/24 12:36 Oxygen Delivery Method Room Air 05/13/24 12:36 BMI result Body Mass Index 25.7 Tobacco/Smoking Status: Tobacco use Status Tobacco use date assessed 05/13/24 05/13/24 12:34 Patient Tobacco Use Status Former Tobacco user 05/13/24 12:31 Tobacco use type Cigarette 05/13/24 12:31 e-Cigarette/Vaping Use Never Used 05/13/24 12:31 PHQ-9: PHQ-9 Score PHQ-9: Total score 0 05/13/24 12:31 Depression Screening Interpretation: Negative Thrive Assessment: Date of Thrive Assessment Date Thrive assessed 05/13/24 05/13/24 12:31 Currently or been in a relationship where the following occur: No concerns reported Results AMB Hemoglobin A1c 2 AMB Hemoglobin A1c 8.6 % Last Edit by Ttia Nuñez MA on 05/13/24 12:47 Coding Level of Care Code Est Pt Level 4 (55216) Complex EM visit Add On G2211 Diagnoses Diabetes mellitus type 2 with complications E11.8 Atopic dermatitis L20.9 Type 2 diabetes mellitus with hyperglycemia, without long-term current use of insulin E11.65 Diabetes mellitus intermediate 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 insulin use: without intermediate 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 use Additional Codes NIR-7 Assessment Billing - NIR-7 Assessment Tool: NIR-7 Assessment 40382 ([id number]) PHQ-9 - 65981 - PHQ-9 Billing: Yes ([id number]) Assessment & Plan Assessment & Plan (1) Diabetes mellitus type 2 with complications: Code(s): E11.8 - Type 2 diabetes mellitus with unspecified complications Category: Medical (2) Atopic dermatitis: Code(s): L20.9 - Atopic dermatitis, unspecified Category: Medical (3) Hyperglycemia due to type 2 diabetes mellitus: Code(s): E11.65 - Type 2 diabetes mellitus with hyperglycemia Category: Medical Qualifiers: Diabetes mellitus intermediate 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 insulin use: without fdc use Q ualified Code(s): E11.65 - Type 2 diabetes mellitus with hyperglycemia Plan . Orders: Orders 2 AMB Hemoglobin A1c Today Z13.9 - Encounter for screening, unspecified Referrals 2 Dermatology Referral L20.9 - Atopic dermatitis, unspecified Medications: New 2 betamethasone dipropionate 0.05% 1 appl topical BID PRN 45 grams 3RF skin irritation
[2024-05-13 12:36] VITALS: BP 118/70; PULSE 73; RESP 12; TEMP 36.8; O2SAT 97; BMI 25.7
== END 2024-05-13 12:59 | disposition home or self-care (01) ==
LOC: HO.HMCFM 12:29
PROVIDERS: PCP Nurse Practitioner Family; Visit Provider Nurse Practitioner Family
DX: E11.8 Type 2 diabetes mellitus with unspecified complications (principal); L20.9 Atopic dermatitis, unspecified; E11.65 Type 2 diabetes mellitus with hyperglycemia; Z13.9 Encounter for screening, unspecified

== ENCOUNTER → 2024-05-13 12:28 | Outpatient (BNVA) | payer BC, SELFPAY | PROVIDERS: PCP Nurse Practitioner Family; Visit Provider Nurse Practitioner Family | DX: E11.8 Type 2 diabetes mellitus with unspecified complications (principal); L20.9 Atopic dermatitis, unspecified; E11.65 Type 2 diabetes mellitus with hyperglycemia | CPT/HCPCS: 83036; 96127 ==

== ENCOUNTER 2024-09-11 11:56 | Outpatient (AMB) | payer BC, SELFPAY ==
--- NOTE | 2024-09-11 12:02 | A.OFFPC_ITS ---
Vital Signs 3 09/11/24 12:06 Height 5 ft 9 in Weight 169 lb 6 oz BMI 25.0 BP 105/68 Blood Pressure Location Rt brachial Position Sitting Respiration 12 Pulse 81 Pulse Source Pulse Oximeter Temp 96.9 F Temp Source Oral Pulse Oximetry (%) 99 Oxygen Delivery Method Room Air Intake Visit Reasons: June- August CPE Intake Note: CPE Transmitter Engineer In Charge Required: No Allergies No Known Allergies Allergy (Verified 09/11/24 12:21) Medication List - Last Reconciled 09/11/24 by LIVAN Foss- blood sugar diagnostic (OneTouch Ultra Test strips) Test Once Daily blood-glucose sensor (FreeStyle Itz 3 Sensor device) As directed empagliflozin (Jardiance) 10 mg PO DAILY lancets (FreeStyle Lancets) As directed metformin ER 1,000 mg (2 x 500 mg) PO BID 90 days Tobacco use date assessed: 09/11/24 Dental Screening Dental Screen Date: 09/11/24 Did you have a dental visit in the last 12 months?: Yes Did you have a dental problem in the last 6 months where you did not have access to dental care?: No Was dental information given to patient?: Patient has dentist HPI HPI Comments 2 History of Present Illness0 Details 34-year-old male with diabetes 2, genera lized anxiety disorder, Displaced fracture of fifth metatarsal bone, left foot 09/2023 s/p vasectomy Social: , 3 children, 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 - Type 2 Diabetes Mellitus with hypergly cemia; A1c 9.5%. - Inconsistent medication adherence and poor dietary control during vacation. - CGM data shows 16% time in target rang e. - Increased exercise and improved lifest yle post-vacation. - Negative diabetic retinopathy screen i february. - He wonders about Type 1.5 Dm - Stress-induced binge eating exacerbate s hyperglycemia. 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 - Medication Adherence: Inconsistent whi le on vacation. Health Maintenance - Diabetic retinopathy screen completed in February - negative. - Plans for kidney function test, choles terol test, thyroid function test, and B12 levels. Review of Systems - Endocrine: Reports hyperglycemia. - Dermatological: Reports rash on legs, cleared recently. - Psychiatric: Denies anxiety or depress ion despite health-related stress. - Gastrointestinal: Denies issues report ed; stools and urination are normal. - Neurological: Denies numbness or tingl ing in feet; Physical Exam General: Well developed, well nourished, in no acute distress. Head: Normocephalic, atraumatic. Eyes: Pupils are equal, round and reactive to light and accommodation. Conjunctivae are clear. Vision grossly normal. Ears: TMs clear AU, EACS WNL. Nose: Patent, without discharge. Neck: Supple, no adenopathy or thyromegaly. Breast: Edu on SBE. Lungs: Clear to auscultation bilaterally. No rales, rhonchi or wheeze noted. Good air flow in all nevarez. Heart: Regular rate and rhythm. No murmurs, click, rubs or gallops are noted. Abdomen: Bowel sounds present in all quadrants. The abdomen is soft, nontender, with no masses or organomegaly noted. No hernias are noted. : Deferred. Reviewed PIEDAD & recommendations Pulses: Peripheral pulses are equal and palpable bilaterally. Extremities: No clubbing, cyanosis nor edema is noted. Neurologic: Gait and station normal. Cranial Nerves 2-12 intact. Motor strength grossly symmetrical and intact. No sensory loss. Balance normal. Slight delay in vibration sensation noted in feet, suggestive of early neuropathy. Normal monofilament bilat Skin: No ulcers, or lesions noted. Turgor is good. Skin color is good. Hair and nails are without abnormalities. See below for rash on legs. Psych: Normal eye contact, affect and mood appropriate, and normal interactions. Patient is alert and appropriate to context. Results - Labs: Hemoglobin A1c 9.5%. - Tests: CGM data shows <180 mg/dL < 16% of the time, >250 mg/dL 43% of the time. Discussion Notes I discussed the current state of the patient's diabetes management, emphasizing the need for improved blood glucose control. Despite lifestyle modifications post-vacation, the A1c level remains high, indicating insufficient glycemic control with current therapy. Options include consultation with a language specialist for further evaluation and potential insulin therapy. However, mutual agreement was to adjust current oral medications by starting glipizide extended- release. We reviewed the potential side effects and need for monitoring possible low blood sugar events. I also emphasized the importance of consistent medication adherence and highlighted that the planned language specialist referral at [facility] will provide additional support in managing diabetes effectively. I advised the patient to contact my office should they encounter issues with the referrals or manage their glycemic levels. Assessment and Plan 1. Type 2 Diabetes Mellitus with hypergl ycemia - Initiate glipizide extended-release. - Maintain current Metformin and Jardian ce doses. - Refer to language specialist. - Continue CGM monitoring. 2. Rash on legs - Refer to dermatology. Labs today Patient Instructions - Continue taking Metformin and Jardianc e as prescribed. - Start glipizide extended-release 1 yonis ly. - Monitor blood sugars with CGM regularl y. - Attend referral appointments with diab etes specialist and salesperson jewelry. - Maintain dietary control and exercise regimen. - Reach out to my office if any issue ar ises with the referrals. - RTO 1 YEAR CPE SOONER PRN Consent Patient was informed and verbally consented to the use of an ambient scribe for clinic note documentation during this visit. AN ADDITIONAL 20 INUTES WAS SPENT ADDRESSING THE PROBLEM(S) NOTED AT TODAYS VISIT. THIS INCLUDES TIME SPENT BEFORE THE VISIT REVIEWING THE CHART, TIME SPENT DURING THE VISIT, AND TIME SPENT AFTER THE VISIT ON DOCUMENTATION REVIEWING LABORATORY RESULTS, DIAGNOSTIC IMAGING, MEDICATIONS, PERFORMING A MEDICALLY NECESSARY EVALUATION, COUNSELING ON DIAGNOSES, CARE COORDINATION, ORDERING APPROPRIATE TESTS, ORDERING APPROPRIATE MEDICATIONS, REVIEW OF TESTS PERFORMED BY OTHER PROVIDERS, REPORTING TEST RESULTS WITH THE PATIENT, COMMUNICATION WITH OTHER HEALTHCARE PROVIDERS. 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, 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 Current occupational exposures/hazards: No Sexual orientation: Straight/Heterosexual Gender identity: Male Cognitive needs: No Hearing needs: No Vision needs: No Questionnaire Thrive Questionnaire Date Thrive assessed: 09/11/24 I am a: Patient What is your living situation today?: I have a steady place to live Within the past 12 months, did the food you bought not last and you didn't have the money to get more?: I choose not to answer this question Within the past 12 months, did you worry whether your food would run out before you got money to buy more?: I choose not to answer this question Do you have trouble paying for medicines?: No Do you have trouble getting transportation to medical appointments?: No Do you have trouble paying your heating and electricity bill?: No Do you have trouble taking care of your child, family member or friend?: No Do you have trouble with day-to-day activities such as bathing, preparing meals, shopping, managing finances, etc.?: No Are you currently unemployed and looking for a job?: No Are you interested in more education?: No Please select the resources that you would like help with: None Currently or been in a relationship where the following occur: No concerns reported THRIVE Score: 0 NIR-7 AMB Questionnaire NIR-7 Date NIR - 7 assessed: 09/11/24 Source: Developed by Drs. Kedar Thomas, Rosie Lei, Jovany Torres and colleagues, with an educational ana laura from [employer]. Physical exam (Primary Care) Vital Signs: Last Vital Signs Temp 96.9 F 09/11/24 12:06 Pulse 81 09/11/24 12:06 Resp 12 09/11/24 12:06 BP 105/68 09/11/24 12:06 Pulse Ox 99 09/11/24 12:06 Oxygen Delivery Method Room Air 09/11/24 12:06 BMI result Body Mass Index 25.0 Tobacco/Smoking Status: Tobacco use Status Tobacco use date assessed 09/11/24 09/11/24 12:05 Patient Tobacco Use Status Former Tobacco user 09/11/24 12:05 Tobacco use type Cigarette 09/11/24 12:05 e-Cigarette/Vaping Use Never Used 09/11/24 12:05 Thrive Assessment: Date of Thrive Assessment Date Thrive assessed 09/11/24 09/11/24 12:05 Currently or been in a relationship where the following occur: No concerns reported Office Procedures Diabetic Foot Exam Details: NORMAL MONOFILAMENT BILAT, ABNORMAL VIBRATORY BILAT G9226 - Diabetic Foot Exam Glucose Monitoring Details Details: gmi 90 days 9.3% time in target 90 days > 250 43% 181-250 41% 70-180 16% 52235 - Continuous Glucose Monitoring, patient provides equipment 52534 - Glucose monitoring, continuous-physician I&R Procedure code (CPT) selection complete Results AMB Hemoglobin A1c 2 AMB Hemoglobin A1c 9.5 % Last Edit by Tita Nuñez MA on 09/11/24 12:19 Coding Level of Care Code Est Pt Level 3 (01503) Est Pt Prev Care 40-64y(16190) Diagnoses Adult general medical exam Z00.00 Diabetes mellitus type 2 with complications E11.8 Anxiety about health F41.8 Type 2 diabetes mellitus with hyperglycemia, without long-term current use of insulin E11.65 Diabetes mellitus correction insulin use: without correction use Rash R21 Diabetic mononeuropathy associated with type 2 diabetes mellitus E11.41 Diabetes mellitus type: type 2 Diabetes mellitus complication detail: diabetic mononeuropathy CPT Codes Diabetic Foot Exam - CPT: G9226 - Diabetic Foot Exam ([id number]) Details - CPT: 62555 - Continuous Glucose Monitoring, patient provides equipment ([id number]) Details - CPT: 27126 - Glucose monitoring, continuous-physician I&R ([id number]) Assessment & Plan Assessment & Plan (1) Adult general medical exam: Onset Date: ~09/11/24 Code(s): Z00.00 - Encounter for general adult medical examination without abnormal findings Category: Medical (2) Diabetes mellitus type 2 with complications: Comment: with hyperglycemia and neuropathy Code(s): E11.8 - Type 2 diabetes mellitus with unspecified complications Category: Medical (3) Anxiety about health: Code(s): F41.8 - Other specified anxiety disorders Category: Medical (4) Hyperglycemia due to type 2 diabetes mellitus: Code(s): E11.65 - Type 2 diabetes mellitus with hyperglycemia Category: Medical Qualifiers: Diabetes mellitus correction insulin use: without continuous churn buttermaker use Q ualified Code(s): E11.65 - Type 2 diabetes mellitus with hyperglycemia (5) Rash: Comment: BLE REFER TO DERM Code(s): R21 - Rash and other nonspecific skin eruption Category: Medical (6) Neuropathy in diabetes: Code(s): E11.40 - Type 2 diabetes mellitus with diabetic neuropathy, unspecified Category: Medical Qualifiers: Diabetes mellitus type: type 2 Diabetes mellitus complication detail: d iabetic mononeuropathy Qualified Code(s): E11.41 - Type 2 diabetes mellitus with diabetic mononeuropathy Plan . Orders: Orders 2 AMB Hemoglobin A1c Today E11.8 - Type 2 diabetes mellitus with unspecified complications, Z13.9 - Encounter for screening, unspecified Referrals 2 Endocrinology Referral E11.65 - Type 2 diabetes mellitus with hyperglycemia, E11.8 - Type 2 diabetes mellitus with unspecified complications Dermatology Referral R21 - Rash and other nonspecific skin eruption Medications: New 2 glipizide ER 10 mg PO DAILY 90 tabs 2RF Refilled 2 metformin ER 1,000 mg (2 x 500 mg) PO BID 360 tabs 1RF 90 days Patient Instructions: Health screenings for men You should visit your health care provider regularly, even if you feel healthy. The purpose of these visits is to: Screen for medical issues Assess your risk for future medical problems Encourage a healthy lifestyle Update vaccinations and other preventive care services Help you get to know your provider in case of an illness Information Even if you feel fine, you should still see your provider for regular checkups. These visits can help you avoid problems in the future. For example, the only way to find out if you have high blood pressure is to have it checked regularly. High blood sugar and high cholesterol level also may not have any symptoms in the early stages. Simple blood tests can check for these conditions. There are specific times when you should see your provider or receive specific health screenings. The [place] Preventive Services Task Force publishes a list of recommended screenings. Below are screening guidelines for men ages 40 to 64. BLOOD PRESSURE SCREENING Have your blood pressure checked at least once every year. Watch for blood pressure screenings in your area. Ask your provider if you can stop in to have your blood pressure checked. Ask your provider if you need your blood pressure checked more often if: You have diabetes, heart disease, kidney problems, or are overweight or have certain other health conditions You have a first-degree relative with high blood pressure You are Black Your blood pressure top number is from 120 to 129 mm Hg, or the bottom number is from 70 to 79 mm Hg If the top number is 130 mm Hg or greater or the bottom number is 80 mm Hg or greater, this is considered stage 1 hypertension. Schedule an appointment with your provider to learn how you can lower your blood pressure. Effects of age on blood pressure CHOLESTEROL SCREENING Cholesterol screening should begin at age 35 for men with no known risk factors for coronary heart disease. Repeat cholesterol screening should take place: Every 5 years for men with normal cholesterol levels More often if changes occur in lifestyle (including weight gain and diet) More often if you have diabetes, heart disease, kidney problems, or certain other conditions COLORECTAL CANCER SCREENING If you are under age 45, talk to your provider about getting screened. You may need to be screened if you have a strong family history of colon cancer or polyps. Screening may also be considered if you have risk factors such as a history of inflammatory bowel disease or polyps. If you are age 45 to 75, you should be screened for colorectal cancer. There are several screening tests available: A stool-based fecal occult blood (gFOBT) or fecal immunochemical test (FIT) every year A stool sDNA test every 1 to 3 years Flexible sigmoidoscopy every 5 years or every 10 years with stool testing FIT done every year CT colonography (virtual colonoscopy) every 5 years Colonoscopy every 10 years You may need a colonoscopy more often if you have risk factors for colorectal cancer, such as: Ulcerative colitis A personal or family history of colorectal cancer A history of growths in your colon called adenomatous polyps DENTAL EXAM Go to the dentist once or twice every year for an exam and cleaning. Your dentist will evaluate if you have a need for more frequent visits. DIABETES SCREENING All adults who do not have risk factors for diabetes should be screened starting at age 35 and repeated every 3 years. If you have other risk factors for diabetes, such as a first degree relative with diabetes, overweight or obesity, high blood pressure, prediabetes, or a history of heart disease, you may be tested more often. If you are overweight and have other risk factors, such as high blood pressure and are planning to become , screening is recommended. EYE EXAM Have an eye exam every 2 to 4 years ages 40 to 54 and every 1 to 3 years ages 55 to 64. Your provider may recommend more frequent eye exams if you have vision problems or glaucoma risk. Have an eye exam that includes an examination of your retina (back of your eye) at least every year if you have diabetes. IMMUNIZATIONS Commonly needed vaccines include: Flu shot: get one every year COVID-19 vaccine: ask your provider what is best for you Tetanus-diphtheria and acellular pertussis (Tdap) vaccine: have as one of your tetanus-diphtheria vaccines if you did not receive it as an adolescent Tetanus-diphtheria: have a booster (or Tdap) every 10 years Varicella vaccine: receive 2 doses if you never had chickenpox or the varicella vaccine and were born in 1979 or after Hepatitis B vaccine: receive 2, 3, or 4 doses, depending on your exact circumstances, if you did not receive these as a child or adolescent, until age 59 Shingles (herpes zoster) vaccine: at or after age 50 Ask your provider if you should receive other immunizations, especially if you have certain medical conditions, such as diabetes or are at increased risk for some diseases such as pneumonia. INFECTIOUS DISEASE SCREENING Screening for hepatitis C: all adults ages 18 to 79 should get a one-time test for hepatitis C. Screening for human immunodeficiency virus (HIV): all people ages 15 to 65 should get a one-time test for HIV. Depending on your lifestyle and medical history, you may need to be screened for infections such as syphilis, chlamydia, and other infections. LUNG CANCER SCREENING You should have an annual screening for lung cancer with low-dose computed tomography (LDCT) if: You are age 50 to 80 years AND You have a 20 pack-year smoking history AND You currently smoke or have quit within the past 15 years OSTEOPOROSIS SCREENING If you are age 50 to 64 and have risk factors for osteoporosis, you should discuss screening with your provider. Risk factors can include long-term steroid use, low body weight, smoking, heavy alcohol use, having a fracture after age 50, or a family history of hip fracture or osteoporosis. Osteoporosis PHYSICAL EXAM All adults should visit their provider from time to time, even if they are healthy. The purpose of these visits is to: Screen for diseases Assess risk of future medical problems Encourage a healthy lifestyle Update vaccinations and other preventive care services Maintain a relationship with a provider in case of an illness Your height, weight, and body mass index (BMI) should be checked at every exam. During your exam, your provider may ask you about: Depression and anxiety Diet and exercise Alcohol and tobacco use Safety, such as use of seat belts and smoke detectors Your medicines and risk for interactions PROSTATE CANCER SCREENING If you're 55 through 69 years old, before having the test, talk to your provider about the pros and cons of having a PSA test. Ask about: Whether screening decreases your chance of dying from prostate cancer. Whether there is any harm from prostate cancer screening, such as side effects from testing or overtreatment of cancer when discovered. Whether you have a higher risk of prostate cancer than others. If you are age 55 or younger, screening is not generally recommended. You should talk with your provider about if you have a higher risk for prostate cancer. Risk factors include: Having a family history of prostate cancer (especially a brother or father) Being If you choose to be tested, the PSA blood test is repeated over time (yearly or less often), though the best frequency is not known. Prostate examinations are no longer routinely done on men with no symptoms. Prostate cancer SKIN EXAM Your provider may check your skin for signs of skin cancer, especially if you're at high risk. People at high risk include those who have had skin cancer before, have close relatives with skin cancer, or have a weakened immune system. TESTICULAR EXAM The [place] Preventive Services Task Force (USPSTF) now recommends against performing testicular self-exams. Doing testicular self-exams has been shown to have little to no benefit.
[2024-09-11 12:06] VITALS: BP 105/68; PULSE 81; RESP 12; TEMP 36.1; O2SAT 99; BMI 25.0
== END 2024-09-11 12:48 | disposition home or self-care (01) ==
LOC: HO.HMCFM 11:57
PROVIDERS: PCP Nurse Practitioner Family; Visit Provider Nurse Practitioner Family
DX: Z00.00 Encounter for general adult medical examination without abnormal findings (principal); E11.65 Type 2 diabetes mellitus with hyperglycemia; E11.41 Type 2 diabetes mellitus with diabetic mononeuropathy; F41.8 Other specified anxiety disorders; R21 Rash and other nonspecific skin eruption

== ENCOUNTER → 2024-09-11 11:56 | Outpatient (BNVA) | payer BC, SELFPAY | PROVIDERS: PCP Nurse Practitioner Family; Visit Provider Nurse Practitioner Family | DX: Z00.00 Encounter for general adult medical examination without abnormal findings (principal); E11.8 Type 2 diabetes mellitus with unspecified complications; F41.8 Other specified anxiety disorders; E11.65 Type 2 diabetes mellitus with hyperglycemia; R21 Rash and other nonspecific skin eruption; E11.41 Type 2 diabetes mellitus with diabetic mononeuropathy | CPT/HCPCS: 83036; 95249 ==

== ENCOUNTER 2024-10-28 13:03 | Outpatient (AMB) | payer BC, SELFPAY ==
--- NOTE | 2024-10-28 13:05 | MHC.OFFVIS ---
Vital Signs 10/28/24 13:13 Height 5 ft 9 in Weight 165 lb 5.547 oz BMI 24.4 BP 104/76 Blood Pressure Location Rt brachial Position Sitting Pulse 84 Pulse Source Pulse Oximeter Pulse Oximetry (%) 96 Oxygen Delivery Method Room Air Intake Visit Reasons: Type 2 diabetes mellitus with unspecified complica Intake Note: New patient internally referred by PCP for T2DM Management. Patient receives Itz 3 Plus supplies through: [facility] Last Diabetic Eye exam: Approx 1 year ago, [facility] eye care Last Podiatry Visit: Does not see a Quartz Miner Blasting Random Glucose: 155 mg/dl Hgb A1C: 9.5% 09/11/2024 Crochet Machine Operator Required: No Accompanied by: Self / Same As Patient Allergies No Known Allergies Allergy (Verified 10/28/24 13:14) Medication List - Last Reconciled 10/28/24 by Kedar Huerta MD blood sugar diagnostic (OneTouch Ultra Test strips) Test Once Daily blood-glucose sensor (FreeStyle Itz 3 Sensor device) As directed blood-glucose sensor (FreeStyle Itz 3 Plus Sensor device) As directed empagliflozin (Jardiance) 10 mg PO DAILY glipizide ER 10 mg PO DAILY lancets (FreeStyle Lancets) As directed metformin ER 1,000 mg (2 x 500 mg) PO BID 90 days HPI Comments Details: 34 YO M who is seen in consultation for T2DM at the request of PCP. Never saw endo before Initially diagnosed with T2DM in 5 yrs ago . Drinking water Was initially started on treatment with metfromin . Current regimen metformin ER 1000 mg BID. Glipizide 10 mg QD not taking Jardiance 10 mg QD Per the CGM Itz CGMS is active % of time . data the patient's predicted A1C is 9.8% which is compared to the patients previous A1C [] dated []. Avg glucose is 271 . Variability of The patient's blood sugars were in target 16% of the time, above target 84% of the time, and below target 0% of the time. Pattern shows drop overnight and increases after lunch Reports low sugars . No lows No Family history of T2DM Has eyes checked yearly, last eye exam 1 yr ago , denies retinopathy. Denies neuropathy, . Denies nephropathy, Not on AZUL/ARB. UAC [] as measured on []. Not Has HLD, Not on [statin]. Denies CAD. Had diabetes education. [facility] Medical History (Updated 09/11/24 @ 12:51 by Kimberly Germain [facility]) Fracture of fifth metatarsal bone of left foot Costochondral chest pain No pertinent past medical history Surgical History History of vasectomy Family History Other Substance abuse Social History Household Members: Spouse and Children Household Members Other:: children x3 Housing: House 75 years or older and lives alone: No Alcohol intake: never Patient Tobacco Use Status: Former Tobacco user Tobacco use type: Cigarette e-Cigarette/Vaping Use: Never Used service: No Current occupational status: employed 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 Absence of acromegalic features. Neck exam reveals nl size thyroid about 15 gms. No thyroid nodules palpable. No carotid bruits present. Lungs CTA. Heart S1 S2, Reg R/R. No M/R/ G. Skin exam reveals absence of vitiligo or acanthosis nigricans. Abdominal exam reveals Soft NT/ND with NA BS. No organomegaly present. Neck Other: . Extrem Other: Visual exam of foot performed. No ulcerations or open lesions. No onchomycosis, no callouses.Pulses 2 + distally Sensation intact to monofilament exam. Vibratory sensation sensed is intact with 128 Hz tuning fork Assessment & Plan Assessment & Plan (1) Diabetes mellitus type 2 with complications: Comment: with hyperglycemia and neuropathy Code(s): E11.8 - Type 2 diabetes mellitus with unspecified complications Category: Medical Plan: This is a 34-year-old white male with a history of type diabetes most likely Type 1 DMbeing treated with metformin, Jardiance and glipizide with poor glycemic control and known microvascular complications namely neuropathy Plan is to stop Metformin, Jardiance and Glipizide . Will check anti- NIR 65Ab. Will start Lantus 10 units and 3 units Humalog pre meals for now . We will also send to automobile body repair supervisor and interior assemblies installer. Will check lipid profile and micro/cr. Also prescribed Baqimi. Will have pt f/u in 4 wks Orders: Orders Microalbumin, Random (w Creat) Today E11.8 - Type 2 diabetes mellitus with unspecified complications Glutamic acid decarboxylase Ab Today E11.8 - Type 2 diabetes mellitus with unspecified complications Referrals Nutrition/Dietitian Referral E11.8 - Type 2 diabetes mellitus with unspecified complications Diabetes Education Referral E11.8 - Type 2 diabetes mellitus with unspecified complications Medications: New Novolog FlexPen U-100 Insulin (insulin aspart U-100) 3 units (0.03 mL) subcut TID 15 mL 4RF NS glucagon 3 mg/actuation (Baqsimi) 3 mg intranasal ONCE 2 ea 0RF pen needle, diabetic (Comfort EZ Pen [place]) As directed injects 4 X/day 200 ea 4RF Lantus Solostar U-100 Insulin (insulin glargine) 10 units (0.1 mL) subcut QPM 15 mL 0RF NS Discontinued empagliflozin (Jardiance) Discontinued Reason: Doctor's Order 10 mg PO DAILY 90 tabs 0RF glipizide ER Discontinued Reason: Doctor's Order 10 mg PO DAILY 90 tabs 2RF metformin ER Discontinued Reason: Doctor's Order 1,000 mg (2 x 500 mg) PO BID 90 days 360 tabs 1RF Coding Level of Care Code New Pt Level 5 (32267) Complex EM visit Add On G2211 Diagnoses Diabetes mellitus type 2 with complications E11.8 Time Spent (min) 60
[2024-10-28 13:13] VITALS: BP 104/76; PULSE 84; O2SAT 96; BMI 24.4
[2024-10-28 13:24] LABS: Glucose, Whole Blood 155 mg/dL (60-115)
== END 2024-10-28 14:32 | disposition home or self-care (01) ==
LOC: HO.ENCR 13:04
PROVIDERS: PCP Nurse Practitioner Family; Visit Provider Internal Medicine Endocrinology, Diabetes & Metabolism
DX: E11.8 Type 2 diabetes mellitus with unspecified complications (principal)
CPT/HCPCS: 99205

== ENCOUNTER → 2024-10-28 13:03 | Outpatient (BNVA) | payer BC, SELFPAY | PROVIDERS: PCP Nurse Practitioner Family; Visit Provider Internal Medicine Endocrinology, Diabetes & Metabolism | DX: E11.8 Type 2 diabetes mellitus with unspecified complications (principal) | CPT/HCPCS: 82947 ==

== ENCOUNTER 2024-12-02 13:47 | Outpatient (REF) | payer BC, SELFPAY | END 2024-12-02 13:48 | disposition home or self-care (01) | LOC: HO.LAB 13:47 | PROVIDERS: PCP Nurse Practitioner Family; Visit Provider Internal Medicine Endocrinology, Diabetes & Metabolism | DX: E11.8 Type 2 diabetes mellitus with unspecified complications (principal) | CPT/HCPCS: 36415; 82043; 82570; 86341 ==

== ENCOUNTER 2024-12-09 13:36 | Outpatient (AMB) | payer BC, SELFPAY ==
--- NOTE | 2024-12-09 13:42 | MHC.OFFVIS ---
Vital Signs 12/09/24 13:46 Height 5 ft 9 in Weight 180 lb 8.937 oz BMI 26.7 BP 96/58 L Blood Pressure Location Rt brachial Position Sitting Pulse 78 Pulse Source Pulse Oximeter Pulse Oximetry (%) 96 Oxygen Delivery Method Room Air Intake Visit Reasons: T1DM Intake Note: Patient present today for T1DM follow up. Patient receives Itz 3 Plus supplies through: [facility] Last Diabetic Eye exam: Approx 1 year ago, [facility] eye care Last Podiatry Visit: Does not see a Marking Machine Operator Random Glucose: 233 mg/dl Hgb A1C: 9.4% 12/09/2024 Sewing Machine Assembler Required: No Accompanied by: Self / Same As Patient Allergies No Known Allergies Allergy (Verified 12/09/24 13:47) Medication List - Last Reconciled 12/09/24 by Kedar Huerta MD blood sugar diagnostic (FreeStyle Lite Strips) As directed tests twice a day blood-glucose meter (FreeStyle Lite Meter kit) As directed blood-glucose sensor (FreeStyle Itz 3 Sensor device) As directed blood-glucose sensor (FreeStyle Itz 3 Plus Sensor device) As directed glucagon 3 mg/actuation (Baqsimi) 3 mg intranasal ONCE lancets (FreeStyle Lancets) As directed Lantus Solostar U-100 Insulin (insulin glargine) 10 units (0.1 mL) subcut QPM NS Novolog FlexPen U-100 Insulin (insulin aspart U-100) 20 units (0.2 mL) subcut TID NS pen needle, diabetic (Comfort EZ Pen [place]) As directed injects 4 X/day HPI Comments Details: 34 YO M who is seen in consultation for T2DM at the request of PCP. Never saw endo before Initially diagnosed with T2DM in 5 yrs ago . Drinking water Was initially started on treatment with metfromin . Currently on 10 units of Lantus not taking every day and 20 units of NovoLog t.i.d. Per the CGM Itz CGMS is active 97 % of time . data the patient's predicted A1C is 9.0% which is compared to the patients previous A1C [] dated []. Avg glucose is 236 . Variability of 34.4 The patient's blood sugars were in target 27% of the time, above target 73% of the time, and below target 0% of the time. Pattern shows drop overnight and decreases after lunch and increases after dinner R Rare lows 2X/day No Family history of T2DM Has eyes checked yearly, last eye exam 1 yr ago , denies retinopathy. Denies neuropathy, . Denies nephropathy, Not on AZUL/ARB. UAC [] as measured on []. Not Has HLD, Not on [statin]. Denies CAD. Had diabetes education. [facility] Medical History (Updated 12/09/24 @ 13:54 by Kedar Huerta MD) Uncontrolled type 1 diabetes mellitus with hyperglycemia, with long-term current use of insulin Fracture of fifth metatarsal bone of left foot Costochondral chest pain No pertinent past medical history Surgical History History of vasectomy Family History Other Substance abuse Social History Household Members: Spouse and Children Household Members Other:: children x3 Housing: House 75 years or older and lives alone: No Alcohol intake: never Patient Tobacco Use Status: Former Tobacco user Tobacco use type: Cigarette e-Cigarette/Vaping Use: Never Used service: No Current occupational status: employed 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 Absence of acromegalic features. Neck exam reveals nl size thyroid about 15 gms. No thyroid nodules palpable. No carotid bruits present. Lungs CTA. Heart S1 S2, Reg R/R. No M/R/ G. Skin exam reveals absence of vitiligo or acanthosis nigricans. Abdominal exam reveals Soft NT/ND with NA BS. No organomegaly present. Neck Other: . Extrem Other: Visual exam of foot performed. No ulcerations or open lesions. No onchomycosis, no callouses.Pulses 2 + distally Sensation intact to monofilament exam. Vibratory sensation sensed is intact with 128 Hz tuning fork Results AMB Hemoglobin A1c AMB Hemoglobin A1c 9.4 % Last Edit by ALIA Whiting on 12/09/24 14:10 Results Reviewed Results Reviewed: Laboratory Last Values Glucose (Clinic) 233 mg/dL (60-115) H 12/09/24 13:51 Assessment & Plan Assessment & Plan (1) Uncontrolled type 1 diabetes mellitus with hyperglycemia, with long-term current use of insulin: Code(s): E10.65 - Type 1 diabetes mellitus with hyperglycemia Category: Medical Plan: This is a 34-year-old white male with a history of type diabetes most likely Type 1 DMbeing treated with metformin, Jardiance and glipizide with poor glycemic control and known microvascular complications namely neuropathy. He had positive anti-ramon 65 antibody suggesting the presence of type 1 diabetes Plan is to increase Lantus 16 units and Humalog to 14 units pre-dinner . We will also send to tobacco prevention health educator . Consideration can be given to use of an insulin pump in the future and repair specialist. I discussed various different pumps with the patient he will research them. Will check lipid profile Will have pt f/u in 4 wks (2) Diabetes mellitus type 2 with complications: Comment: with hyperglycemia and neuropathy Code(s): E11.8 - Type 2 diabetes mellitus with unspecified complications Category: Medical Plan: See management for type 1 diabetes Orders: Orders Lipid Panel Today E10.65 - Type 1 diabetes mellitus with hyperglycemia AMB Hemoglobin A1c Today E11.8 - Type 2 diabetes mellitus with unspecified complications Coding Level of Care Code Est Pt Level 4 (98110) Complex EM visit Add On G2211 Diagnoses Uncontrolled type 1 diabetes mellitus with hyperglycemia, with long-term current use of insulin E10.65 Diabetes mellitus type 2 with complications E11.8
[2024-12-09 13:46] VITALS: BP 96/58; PULSE 78; O2SAT 96; BMI 26.7
[2024-12-09 13:56] LABS: Glucose, Whole Blood 233 mg/dL (60-115)
== END 2024-12-09 14:16 | disposition home or self-care (01) ==
LOC: HO.ENCR 13:37
PROVIDERS: PCP Nurse Practitioner Family; Visit Provider Internal Medicine Endocrinology, Diabetes & Metabolism
DX: E10.65 Type 1 diabetes mellitus with hyperglycemia (principal)
CPT/HCPCS: 99214

== ENCOUNTER → 2024-12-09 13:36 | Outpatient (BNVA) | payer BC, SELFPAY | PROVIDERS: PCP Nurse Practitioner Family; Visit Provider Internal Medicine Endocrinology, Diabetes & Metabolism | DX: E10.65 Type 1 diabetes mellitus with hyperglycemia (principal); E11.8 Type 2 diabetes mellitus with unspecified complications; Z79.4 Long term (current) use of insulin | CPT/HCPCS: 82947; 83036 ==